=== PATIENT | male | born 1965 | race Caucasian/White ===

== ENCOUNTER 2017-03-30 19:07 | Inpatient (IN) | payer OTHER ==
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
[2017-03-30 21:27] LABS: Basophils % (A) 0 %; Eosinophils # (A) 0.1 k/uL (0-0.7); Eosinophils % (A) 1 %; HCT 48.2 % (39.0-53.0); HGB 15.6 gm/dL (13.0-17.5); Lymphocytes # (A) 1.4 k/uL (1.0-4.8); Lymphocytes % (A) 17 %; MCHC 32.3 g/dL (31.0-37.0); MCV 98.9 fL (80.0-100.0); Mean Platelet Volume 7.2; Monocytes # (A) 0.3 k/uL (0-1.0); Monocytes % (A) 4 %; Neutrophils # (A) 6.3 k/uL (1.3-7.7); Neutrophils % (A) 77 %; Platelet Count 220 k/uL (150-450); RBC 4.88 m/uL (4.30-5.90); RDW 11.8 % (11.5-15.5); WBC 8.2 k/uL (3.8-10.6)
[2017-03-30 21:41] LABS: ALT 24 U/L (21-72); AST 30 U/L (17-59); Albumin 4.8 g/dL (3.5-5.0); Alkaline Phosphatase 71 U/L (38-126); Anion Gap 14 mmol/L; Blood Urea Nitrogen 15 mg/dL (9-20); C Reactive Protein <5.0 mg/L (<10.0); Calcium 9.6 mg/dL (8.4-10.2); Carbon Dioxide 26 mmol/L (22-30); Chloride 102 mmol/L (98-107); Glucose 107 mg/dL (74-99); Potassium 4.9 mmol/L (3.5-5.1); Sodium 142 mmol/L (137-145); Total Bilirubin 0.5 mg/dL (0.2-1.3); Total Protein 8.5 g/dL (6.3-8.2)
[2017-03-30 21:44] LABS: D-Dimer 0.27 mg/L FEU (<0.60)
[2017-03-30 21:49] LABS: INR 1.1 (<1.2); Partial Thromboplastin Time 23.9 sec (22.0-30.0); Prothrombin Time 10.6 sec (9.0-12.0)
--- NOTE | 2017-03-30 21:54 | XR ---
EXAMINATION TYPE: XR chest 2V DATE OF EXAM: 03/30/2017 COMPARISON: 11/23/2014 HISTORY: Chest pain TECHNIQUE: Frontal and lateral views of the chest are obtained. FINDINGS: Heart and mediastinum are normal. Lungs are clear. Diaphragm is normal. Bony thorax is int act. There are chest leads. IMPRESSION: Normal chest. No change.
[2017-03-30 22:06] LABS: Creatine Kinase MB 1.1 ng/mL (0.0-2.4)
[2017-03-30 22:09] LABS: Troponin I 0.049 ng/mL (0.000-0.034)
[2017-03-30] MEDS ORDERED: HEPARIN SODIUM,PORCINE 5,000 UNIT/ML 1 ML VIAL IV ONE (22:53)
[2017-03-30] MEDS ORDERED: NITROGLYCERIN SL TABS 0.4 MG TAB SUBLINGUAL PRN (22:53)
[2017-03-30] MEDS: SODIUM CHLORIDE 0.9% 1,000 ML IV SCH (23:19)
[2017-03-30] MEDS: HEPARIN SOD,PORK IN 0.45% NACL 25,000 UNIT in 0.45% NACL 1 500ML.BAG IV SCH (23:19)
[2017-03-31] MEDS: NITROGLYCERIN OINT 1 INCH/GM PACKET TOPICAL SCH ×5 (00:23→23:01)
[2017-03-31 03:17] LABS: Troponin I 0.057 ng/mL (0.000-0.034)
[2017-03-31 06:26] LABS: Cholesterol 159 mg/dL (<200); HDL Cholesterol 45 mg/dL (40-60); LDL Cholesterol,Calculated 98 mg/dL (0-99); Triglycerides 82 mg/dL (<150)
[2017-03-31 08:20] VITALS: BMI 24.3
[2017-03-31] MEDS: ASPIRIN 325 MG TAB PO SCH (08:22)
[2017-03-31 10:32] LABS: Creatine Kinase MB 0.8 ng/mL (0.0-2.4)
[2017-03-31 10:34] LABS: Troponin I 0.036 ng/mL (0.000-0.034)
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
--- NOTE | 2017-03-31 12:54 | ECHOF ---
Referral Reason:assess lvf MEASUREMENTS -------- HEIGHT: 177.8 cm WEIGHT: 77.1 kg BP: IVSd: 1.3 cm (0.6 - 1.1) LVIDd: 3.3 cm (3.9 - 5.3) LVPWd: 1.3 cm (0.6 - 1.1) IVSs: 1.5 cm LVIDs: 2.5 cm LVPWs: 1.1 cm LAESV Index (A-L): 17.23 ml/m Ao Diam: 2.6 cm (2.0 - 3.7) AV Cusp: 1.6 cm (1.5 - 2.6) LA Diam: 3.1 cm (2.7 - 3.8) MV EXCURSION: 17.245 mm (> 18.000) MV EF SLOPE: 65 mm/s (70 - 150) EPSS: 0.2 cm MV E Alexander: 0.63 m/s MV DecT: 242 ms MV A Alexander: 0.78 m/s MV E/A Ratio: 0.81 RAP: 5.00 mmHg RVSP: 16.07 mmHg FINDINGS -------- Sinus rhythm. This was a technically good study. The left ventricular size is normal. There is mild concentric left ventricular hypertrophy. Overa ll left ventricular systolic function is normal with, an EF between 55 - 60 %. The right ventricle is normal in size. The left atrial size is normal. The right atrial size is normal. The aortic valve is trileaflet, and appears structurally normal. No aortic stenosis or regurgitation. The mitral valve is normal. Mild mitral regurgitation is present. Mild tricuspid regurgitation present. There is no evidence of pulmonary hypertension. The right v entricular systolic pressure, as measured by Doppler, is 16.07mmHg. There is no pulmonic regurgitation present. The aortic root size is normal. There is no pericardial effusion. CONCLUSIONS -------- 1. Sinus rhythm. 2. This was a technically good study. 3. The left ventricular size is normal. 4. There is mild concentric left ventricular hypertrophy. 5. Overall left ventricular systolic function is normal with, an EF between 55 - 60 %. 6. The left atrial size is normal. 7. The aortic valve is trileaflet, and appears structurally normal. No aortic stenosis or regurgitati on. 8. Mild mitral regurgitation is present. 9. Mild tricuspid regurgitation present. 10. There is no evidence of pulmonary hypertension. 11. There is no pulmonic regurgitation present. 12. The aortic root size is normal. 13. There is no pericardial effusion. [employer] TECHNICIAN: Celine Pablo RDCS
[2017-03-31] MEDS ORDERED: HEPARIN SODIUM,PORCINE 5,000 UNIT/ML 1 ML VIAL IV STA (13:10)
[2017-03-31] MEDS: ACETAMINOPHEN TAB 325 MG TAB PO PRN ×2 (14:44→19:57)
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
--- NOTE | 2017-03-31 16:35 | PN ---
PROGRESS NOTE CHIEF COMPLAINT: Chest pain. HISTORY OF PRESENT ILLNESS: This gentleman is stable and he has had no change in his vital signs. He has had no chest pain. PHYSICAL EXAMINATION: CHEST: Clear. Cardiac exam is normal. Abdomen is soft, nontender. IMPRESSION: Chest pain with elevated troponin. PLAN: Await recommendations of Cardiology. MMODL / IJN: [id number] /
[2017-03-31] MEDS: HEPARIN SOD,PORK IN 0.45% NACL 25,000 UNIT in 0.45% NACL 1 500ML.BAG IV SCH (22:06)
[2017-03-31] MEDS: SODIUM CHLORIDE 0.9% 1,000 ML IV SCH (22:07)
[2017-04-01] MEDS: NITROGLYCERIN OINT 1 INCH/GM PACKET TOPICAL SCH ×3 (05:58→15:06)
[2017-04-01 07:32] LABS: HCT 42.8 % (39.0-53.0); HGB 13.9 gm/dL (13.0-17.5); MCH 32.3 pg (25.0-35.0); MCHC 32.5 g/dL (31.0-37.0); MCV 99.6 fL (80.0-100.0); Platelet Count 191 k/uL (150-450); RDW 11.7 % (11.5-15.5); WBC 5.2 k/uL (3.8-10.6)
[2017-04-01 08:10] LABS: Anion Gap 10 mmol/L; Blood Urea Nitrogen 18 mg/dL (9-20); Calcium 9.1 mg/dL (8.4-10.2); Carbon Dioxide 26 mmol/L (22-30); Chloride 104 mmol/L (98-107); Glucose 81 mg/dL (74-99); Potassium 4.2 mmol/L (3.5-5.1); Sodium 140 mmol/L (137-145)
[2017-04-01] MEDS: ASPIRIN 325 MG TAB PO SCH ×2 (09:21→09:24)
[2017-04-01] MEDS ORDERED: DOBUTamine DRIP for NUC MED 250 MG in DEXTROSE/WATER 1 250ML.BAG IV ONE (12:50)
--- NOTE | 2017-04-01 14:00 | ECHOS ---
STRESS ECHOCARDIOGRAM INDICATIONS: Chest pain. BASELINE HEART RATE: 56 BASELINE BLOOD PRESSURE: 107/58 MAXIMUM HEART RATE: 152 MAXIMUM BLOOD PRESSURE: 136/51 85% MPHR: 145 100% MPHR: 171 MAXIMUM STAGE REACHED: 3 TOTAL EXERCISE TIME: 7:00 CLINICAL INFORMATION: Baseline rhythm is sinus mechanism, rate 56, normal axis and intervals, nonspecific ST- T wave changes. Baseline blood pressure 107/58 mmHg. Patient received an infusion of dobutamine per protocol, reaching a peak heart rate 152 beats per minute, which is equal to 89% maximum predicted heart rate. Peak blood pressure 136/51 mmHg. Electrocardiograph monitoring revealed no evidence of diagnostic ischemic ST deviation. FINDINGS: Baseline echocardiogram revealed normal function at peak exercise, there was normal wall motion augmentation with no hypokinesis or dyskinesis. CONCLUSION: 1. Normal electrocardiographic response to dobutamine infusion. 2. Normal stress echocardiogram with no evidence of stress-induced ischemia. MMODL / IJN: [id number] /
[2017-04-01 15:03] VITALS: BP 119/69; PULSE 79; RESP 16; TEMP 96.7
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
--- NOTE | 2017-04-01 16:30 | DS ---
DISCHARGE SUMMARY CHIEF COMPLAINT: Chest pain. HISTORY OF PRESENT ILLNESS AND PHYSICAL EXAM: Details of this man's history and physical can be found in the initial workup. LABORATORY STUDIES: While he was in a hospital he had laboratory studies details of which can be found in the laboratory section of chart. COURSE IN HOSPITAL: After admission he was placed in bedrest, started on intravenous fluids and had serial EKGs and enzymes. He was taken to the operating room where his cardiac cath was normal. It was felt he could go home afternoon and he will go home on no medications, his usual diet and activity and follow up in the office several days. FINAL DIAGNOSIS: Chest pain, noncardiac. OPERATIONS: Cardiac cath. CONSULTATIONS: Cardiology. He is improved. MMODL / IJN: [id number] /
== END 2017-04-01 15:42 | disposition home or self-care (01) | DRG 313 ==
LOC: EC 19:07 → 6SEL 22:53
PROVIDERS: ADMIT Family Medicine; ATTEND Family Medicine
DX: R07.9 Chest pain, unspecified (principal); F17.200 Nicotine dependence, unspecified, uncomplicated; F32.9 Major depressive disorder, single episode, unspecified; F43.10 Post-traumatic stress disorder, unspecified; G40.909 Epilepsy, unspecified, not intractable, without status epilepticus; F41.9 Anxiety disorder, unspecified; R00.1 Bradycardia, unspecified; R74.8 Abnormal levels of other serum enzymes; Z88.8 Allergy status to other drugs, medicaments and biological substances; Z91.030 Bee allergy status
CPT/HCPCS: 36415; 71046; 80048; 80053; 80061; 82550; 82553; 83735; 83880; 84484; 85025; 85027; 85379; 85610; 85652; 85730; 86140; 87502; 93005; 93017; 93306; 93350; 96365; 96366; 96376; 99285

== ENCOUNTER 2017-12-07 10:26 | Emergency (ER) | payer OTHER ==
[2017-12-07] MEDS ORDERED: IPRATROPIUM-ALBUTEROL 3 ML NEB INHALATION STA (11:05)
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
--- NOTE | 2017-12-07 11:22 | XR ---
EXAMINATION TYPE: XR chest 2V DATE OF EXAM: 12/07/2017 COMPARISON: 03/30/2017 HISTORY: Cough and congestion TECHNIQUE: Frontal and lateral views of the chest are obtained. FINDINGS: There is no focal air space opacity, pleural effusion, or pneumothorax seen. The cardiac silhouette size is within normal limits. The osseous structures are intact. IMPRESSION: No acute cardiopulmonary process.
[2017-12-07] MEDS ORDERED: methylPREDNISolone SOD SUCCI 125 MG/2 ML VIAL IM ONE (11:34)
[2017-12-07 12:19] VITALS: BP 141/84; PULSE 93; RESP 22; TEMP 98.3
== END 2017-12-07 12:19 | disposition home or self-care (01) ==
LOC: EC 10:26
DX: J20.9 Acute bronchitis, unspecified (principal); F17.200 Nicotine dependence, unspecified, uncomplicated; Z88.8 Allergy status to other drugs, medicaments and biological substances; Z91.030 Bee allergy status
CPT/HCPCS: 94640; 71046; 99283; 96372; J2930

== ENCOUNTER 2018-03-22 10:43 | Emergency (ER) | payer OTHER ==
[2018-03-22 11:00] VITALS: BP 134/89; PULSE 102; RESP 18; TEMP 97.8
[2018-03-22] MEDS ORDERED: AMOXIC-POT CLAV 875MG STARTER 2 EACH TABLET PO STA (12:05)
[2018-03-22] MEDS ORDERED: AMOXIC-POT CLAV 875-125MG 1 EACH TAB PO STA (12:05)
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
== END 2018-03-22 13:37 | disposition home or self-care (01) ==
LOC: EC 10:43
DX: S62.632A Displaced fracture of distal phalanx of right middle finger, initial encounter for closed fracture (principal); S60.511A Abrasion of right hand, initial encounter; F17.200 Nicotine dependence, unspecified, uncomplicated; Z88.8 Allergy status to other drugs, medicaments and biological substances; Z91.030 Bee allergy status; Y04.1XXA Assault by human bite, initial encounter; Y04.0XXA Assault by unarmed brawl or fight, initial encounter; Y92.89 Other specified places as the place of occurrence of the external cause
CPT/HCPCS: 99284

== ENCOUNTER 2018-04-15 04:04 | Emergency (ER) | payer OTHER ==
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
[2018-04-15 08:23] VITALS: BP 101/74; PULSE 91; RESP 18; TEMP 97.8
== END 2018-04-15 08:58 | disposition home or self-care (01) ==
LOC: EC 04:04
DX: F10.129 Alcohol abuse with intoxication, unspecified (principal); F17.200 Nicotine dependence, unspecified, uncomplicated; Z88.8 Allergy status to other drugs, medicaments and biological substances; Z91.030 Bee allergy status
CPT/HCPCS: 82075; 99284

== ENCOUNTER 2018-08-07 00:29 | Emergency (ER) | payer OTHER ==
[2018-08-07] MEDS ORDERED: SODIUM CHLORIDE 0.9% 1,000 ML IV STA ×2 (00:42→02:15)
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
[2018-08-07] MEDS ORDERED: MORPHINE SULFATE 4 MG/ML SYRINGE IVP STA ×2 (00:47→02:14)
[2018-08-07 00:51] VITALS: RESP 16
[2018-08-07 00:57] LABS: Basophils % (A) 0 %; Eosinophils # (A) 0.2 k/uL (0-0.7); Eosinophils % (A) 3 %; HCT 40.5 % (39.0-53.0); HGB 13.1 gm/dL (13.0-17.5); Lymphocytes % (A) 24 %; MCH 32.1 pg (25.0-35.0); MCHC 32.4 g/dL (31.0-37.0); Mean Platelet Volume 7.3; Monocytes # (A) 0.4 k/uL (0-1.0); Monocytes % (A) 5 %; Neutrophils # (A) 5.4 k/uL (1.3-7.7); Neutrophils % (A) 66 %; Platelet Count 199 k/uL (150-450); RBC 4.09 m/uL (4.30-5.90); RDW 13.2 % (11.5-15.5); WBC 8.2 k/uL (3.8-10.6)
[2018-08-07 01:05] LABS: African American GFR (CKD) >90 (>60 ml/min/1.73 sqM); Anion Gap 8 mmol/L; Blood Urea Nitrogen 17 mg/dL (9-20); Calcium 8.4 mg/dL (8.4-10.2); Carbon Dioxide 23 mmol/L (22-30); Chloride 109 mmol/L (98-107); Glucose 80 mg/dL (74-99); Potassium 4.3 mmol/L (3.5-5.1); Sodium 140 mmol/L (137-145)
[2018-08-07 01:47] VITALS: BP 125/73
--- NOTE | 2018-08-07 02:03 | CT ---
EXAM: CT Abdomen and Pelvis Without Intravenous Contrast CLINICAL HISTORY: ITS.REASON CT Reason: Pain. Left flank pain. TECHNIQUE: Axial computed tomography images of the abdomen and pelvis without intravenous contrast. CTDI is 7.4 mGy and DLP is 399.3 mGy-cm. This CT exam was performed using one or more of the following dose reduction techniques: automated exposure control, adjustment of the mA and/or kV according to patient size, and/or use of iterative reconstruction technique. COMPARISON: None available FINDINGS: Lung bases: Mild bibasilar dependent subsegmental atelectasis. ABDOMEN: Liver: Submillimeter low density lesion medial segment left lobe of liver is nonspecific-possible small hepatic cyst but too small for definitive CT characterization. Gallbladder and bile ducts: Gallbladder is unremarkable. No calcified stones. No ductal dilation. Pancreas: Pancreas is unremarkable. Spleen: Spleen is unremarkable. Adrenals: No adrenal masses. Kidneys and ureters: Small approximately 2 millimeter nonobstructing right lower pole renal calculus. Small approximately 4 x 5 mm distal left ureteral calculus with mild left hydronephrosis and hydroureter. Mild perinephric and periureteral stranding compatible with obstructive uropathy. Stomach and bowel: Stomach is nondistended. No evidence of bowel obstruction or pneumoperitoneum. PELVIS: Appendix: Appendix not identified. Post surgical changes about cecal tip suggesting previous appendectomy. Clinical correlation is recommended. Bladder: Mild apparent urinary bladder wall thickening may be related to incomplete distention or possible cystitis. No bladder calculi. Reproductive: Unremarkable as visualized. ABDOMEN and PELVIS: Intraperitoneal space: See above. Bones/joints: Multilevel lumbar spine degenerative changes. Moderate osteoarthritic degenerative changes about both hips. Soft tissues: Minimal fat-containing umbilical hernia. Vasculature: No abdominal aortic aneurysm. Lymph nodes: No evidence of lymphadenopathy. IMPRESSION: Small approximately 4 x 5 mm distal left ureteral calculus with mild left hydronephrosis and hydroureter. Small nonobstructing right renal calculus. Mild urinary bladder wall thickening may be related to incomplete distention or possible cystitis. No bladder calculi. Small 7 mm left hepatic low-density is nonspecific-possible small hepatic cyst.
[2018-08-07] MEDS ORDERED: KETOROLAC 30 MG/ML 1 ML VIAL IVP STA (02:47)
[2018-08-07] MEDS ORDERED: ONDANSETRON 4 MG/2 ML VIAL IM STA (02:53)
[2018-08-07] MEDS ORDERED: ONDANSETRON 4 MG/2 ML VIAL IVP STA (02:56)
[2018-08-07 03:45] LABS: Appearance,Urine Clear (Clear); Bilirubin,Urine Negative (Negative); Blood,Urine Moderate (Negative); Color,Urine Yellow; Glucose,Urine (UA) Negative (Negative); Ketones,Urine 1+ (Negative); Leukocyte Esterase,Urine Negative (Negative); Mucus,Urine Few /hpf; Nitrite,Urine Negative (Negative); Protein,Urine Trace (Negative); RBC,Urine >182 /hpf (0-5); Specific Gravity,Urine 1.019 (1.001-1.035); Sperm,Urine Rare /hpf; WBC,Urine 1 /hpf (0-5)
--- NOTE | 2018-08-07 04:09 | ED ---
Medical Decision Making - Lab Data Result diagrams: 08/07/18 00:43 08/07/18 00:43 Lab Results 08/07/18 08/07/18 08/07/18 Range/Units 00:43 00:43 03:34 WBC 8.2 (3.8-10.6) k/uL RBC 4.09 L (4.30-5.90) m/uL Hgb 13.1 (13.0-17.5) gm/dL Hct 40.5 (39.0-53.0) % MCV 99.0 (80.0-100.0) fL MCH 32.1 (25.0-35.0) pg MCHC 32.4 (31.0-37.0) g/dL RDW 13.2 (11.5-15.5) % Plt Count 199 (150-450) k/uL Neutrophils % 66 % Lymphocytes % 24 % Monocytes % 5 % Eosinophils % 3 % Basophils % 0 % Neutrophils # 5.4 (1.3-7.7) k/uL Lymphocytes # 2.0 (1.0-4.8) k/uL Monocytes # 0.4 (0-1.0) k/uL Eosinophils # 0.2 (0-0.7) k/uL Basophils # 0.0 (0-0.2) k/uL Sodium 140 (137-145) mmol/L Potassium 4.3 (3.5-5.1) mmol/L Chloride 109 H (98-107) mmol/L Carbon Dioxide 23 (22-30) mmol/L Anion Gap 8 mmol/L BUN 17 (9-20) mg/dL Creatinine 0.90 (0.66-1.25) mg/dL Est GFR (CKD-EPI)AfAm >90 (>60 ml/min/1.73 sqM) Est GFR (CKD-EPI)NonAf >90 (>60 ml/min/1.73 sqM) Glucose 80 (74-99) mg/dL Calcium 8.4 (8.4-10.2) mg/dL Urine Color Yellow Urine Appearance Clear (Clear) Urine pH 6.0 (5.0-8.0) Ur Specific [place] 1.019 (1.001-1.035) Urine Protein Trace H (Negative) Urine Glucose (UA) Negative (Negative) Urine Ketones 1+ H (Negative) Urine Blood Moderate H (Negative) Urine Nitrite Negative (Negative) Urine Bilirubin Negative (Negative) Urine Urobilinogen 2.0 (<2.0) mg/dL Ur Leukocyte Esterase Negative (Negative) Urine RBC >182 H (0-5) /hpf Urine WBC 1 (0-5) /hpf Urine Mucus Few H (None) /hpf Urine Sperm Rare (None) /hpf Disposition Clinical Impression: Kidney stone Disposition: HOME SELF-CARE Condition: Good Instructions (If sedation given, give patient instructions): Kidney Stones (ED) Prescriptions: Ketorolac [Toradol] 20 mg PO Q6HR PRN #20 tab PRN Reason: Pain Is patient prescribed a controlled substance at d/c from ED?: No Referrals: Trino Haas MD [STAFF PHYSICIAN] - 1-2 days Time of Disposition: 04:09
[2018-08-07 04:14] VITALS: PULSE 70
== END 2018-08-07 04:13 | disposition home or self-care (01) ==
LOC: EC 00:29
DX: N13.2 Hydronephrosis with renal and ureteral calculous obstruction (principal); F17.200 Nicotine dependence, unspecified, uncomplicated; Z88.8 Allergy status to other drugs, medicaments and biological substances; Z91.030 Bee allergy status; Z53.8 Procedure and treatment not carried out for other reasons
CPT/HCPCS: 36415; 80048; 85025; 81001; 87086; 74176; 99285; 96374; 96375 ×2; 96376; 96361 ×3; J2270; J2405; J1885

== ENCOUNTER 2018-11-03 08:56 | Observation (INO) | payer OTHER ==
[2018-11-03] MEDS ORDERED: ASPIRIN 81 MG PO STA (08:59)
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
[2018-11-03] MEDS ORDERED: KETOROLAC 30 MG/ML 1 ML VIAL IVP STA (09:07)
[2018-11-03] MEDS ORDERED: ONDANSETRON 4 MG/2 ML VIAL IVP STA (09:07)
[2018-11-03 09:26] LABS: Basophils # (A) 0.1 k/uL (0-0.2); Basophils % (A) 0 %; Eosinophils # (A) 0.1 k/uL (0-0.7); Eosinophils % (A) 1 %; HCT 48.1 % (39.0-53.0); HGB 15.2 gm/dL (13.0-17.5); Lymphocytes # (A) 1.9 k/uL (1.0-4.8); Lymphocytes % (A) 16 %; MCH 31.3 pg (25.0-35.0); MCHC 31.5 g/dL (31.0-37.0); MCV 99.4 fL (80.0-100.0); Mean Platelet Volume 7.2; Monocytes # (A) 0.3 k/uL (0-1.0); Monocytes % (A) 3 %; Neutrophils # (A) 9.1 k/uL (1.3-7.7); Neutrophils % (A) 78 %; Platelet Count 230 k/uL (150-450); RBC 4.84 m/uL (4.30-5.90); RDW 13.5 % (11.5-15.5); WBC 11.5 k/uL (3.8-10.6)
--- NOTE | 2018-11-03 09:37 | XR ---
EXAMINATION TYPE: XR chest 2V DATE OF EXAM: 11/03/2018 COMPARISON: 12/07/2017 HISTORY: Shortness of breath TECHNIQUE: Frontal and lateral views of the chest are obtained. FINDINGS: Scattered senescent parenchymal changes noted. Hyperinflation compatible with COPD. No evidence for infiltrate. No evidence for atelectasis. Heart size is stable. Mediastinal structures are stable and grossly unremarkable. No evidence for hilar prominence. Degenerative changes dorsal spine. IMPRESSION: 1. No evidence for acute pulmonary disease.
[2018-11-03 09:41] LABS: African American GFR (CKD) >90 (>60 ml/min/1.73 sqM); Anion Gap 17 mmol/L; Blood Urea Nitrogen 17 mg/dL (9-20); Calcium 9.2 mg/dL (8.4-10.2); Carbon Dioxide 20 mmol/L (22-30); Chloride 107 mmol/L (98-107); Creatine Kinase 85 U/L (55-170); Glucose 58 mg/dL (74-99); Sodium 144 mmol/L (137-145); Total Bilirubin 0.8 mg/dL (0.2-1.3)
[2018-11-03 09:44] LABS: ALT 17 U/L (21-72); AST 37 U/L (17-59); Albumin 4.9 g/dL (3.5-5.0); Alkaline Phosphatase 99 U/L (38-126); Potassium 5.1 mmol/L (3.5-5.1); Total Protein 8.8 g/dL (6.3-8.2)
[2018-11-03 09:50] LABS: D-Dimer 0.5 mg/L FEU (<0.60); Partial Thromboplastin Time 24.8 sec (22.0-30.0); Prothrombin Time 10.6 sec (9.0-12.0)
[2018-11-03] MEDS ORDERED: NITROGLYCERIN SL TABS 0.4 MG TAB SUBLINGUAL PRN (14:38)
[2018-11-03] MEDS ORDERED: SODIUM CHLORIDE 0.9% 1,000 ML IV SCH (14:45)
[2018-11-03 15:20] VITALS: RESP 18
[2018-11-04 03:30] LABS: Cholesterol 221 mg/dL (<200); HDL Cholesterol 51 mg/dL (40-60); LDL Cholesterol,Calculated 153 mg/dL (0-99); Triglycerides 87 mg/dL (<150)
--- NOTE | 2018-11-04 08:21 | CONS ---
CONSULTATION Mr. Abraham is a 53-year-old male with known history of chronic tobacco use, who presented to the emergency room with symptoms of chest discomfort. He was dropping his daughter at school when he had an episode of chest discomfort associated with some dyspnea. The discomfort was severe and he came into the emergency room. At the time of my evaluation, he is pain free. The patient is quite active physically, has no exertional chest discomfort. No dyspnea on exertion. No dizziness, palpitation, or syncope. He was admitted to the hospital in November 2014 with similar symptoms and subsequently underwent an echocardiogram that revealed no evidence of inducible ischemia. He was readmitted to the hospital in March 2017 and underwent a dobutamine stress echocardiogram at that time that showed no evidence of stress induced ischemia. The patient had not any symptoms since that episode. He denies any PND, orthopnea, or peripheral edema. No arrhythmia. He has not had any recent other symptoms. His coronary risk factors are remarkable for the history of smoking. He is nondiabetic. No history of documented hypertension or hyperlipidemia. MEDICATIONS AT HOME: None. REVIEW OF SYSTEMS: RESPIRATORY SYSTEM: He has no recent cough or wheezing. No history of documented obstructive lung disease. GI SYSTEM: No recent GI bleed. No peptic ulcer disease. SYSTEM: No dysuria or hematuria. NERVOUS SYSTEM: No stroke or seizure. PHYSICAL EXAMINATION: This is a 53-year-old male, alert, oriented, in no apparent distress. Blood pressure running in the 130s to 140s with the heart rate in the 60s. HEAD: Normocephalic. EYES: Sclerae anicteric. NECK: Good carotid upstroke. No bruit,. No jugular venous distention. LUNGS: Clear to auscultation. HEART: Regular rate and rhythm. S1, S2. No S3. No S4. No murmur or rub. ABDOMEN: Soft, nontender. Positive bowel sounds. No organomegaly. EXTREMITIES: No edema. Intact distal pulses. LAB DATA: EKG sinus mechanism, rate of 99, borderline right axis deviation with nonspecific ST-T wave changes with early repolarization changes. Chest x-ray shows no acute changes. Lab data revealed troponin less than 0.012 for 3 samples. Cholesterol 221, LDL of 153. BUN and creatinine 17 and 0.98. Hemoglobin of 15.2. IMPRESSION: 1. Chest discomfort of unclear etiology, has some atypical features for ischemic heart disease. 2. History of smoking. 3. Hyperlipidemia. RECOMMENDATION: I have encouraged him to stop smoking. I will proceed to obtain a stress echocardiogram to rule out any evidence of inducible ischemia. If there is no evidence of abnormality then no further cardiac workup will be needed. I will recommend to initiate treatment for his hyperlipidemia. Depending on the results of his testing, further recommendation will be made. Thank you for this consult. We will follow with you. CELESTINO / JILLN: [id number] /
[2018-11-04] MEDS ORDERED: ASPIRIN 81 MG PO SCH (09:00)
[2018-11-04] MEDS ORDERED: ATORVASTATIN 20 MG TAB PO SCH (09:00)
[2018-11-04] MEDS ORDERED: ASPIRIN 325 MG TAB PO SCH (09:00)
--- NOTE | 2018-11-04 10:25 | ECHOF ---
Referral Reason:cp MEASUREMENTS -------- HEIGHT: 180.3 cm WEIGHT: 74.8 kg BP: RVIDd: 2.5 cm (< 3.3) IVSd: 0.8 cm (0.6 - 1.1) LVIDd: 3.9 cm (3.9 - 5.3) LVPWd: 0.9 cm (0.6 - 1.1) IVSs: 1.3 cm LVIDs: 1.7 cm LVPWs: 1.5 cm LAESV Index (A-L): 17.85 ml/m Ao Diam: 2.7 cm (2.0 - 3.7) AV Cusp: 1.9 cm (1.5 - 2.6) LA Diam: 2.1 cm (2.7 - 3.8) MV EXCURSION: 11.388 mm (> 18.000) MV EF SLOPE: 55 mm/s (70 - 150) EPSS: 0.9 cm MV E Alexander: 0.74 m/s MV DecT: 325 ms MV A Alexander: 0.76 m/s MV E/A Ratio: 0.97 RAP: 5.00 mmHg RVSP: 12.71 mmHg TAPSE: 24.60 mm FINDINGS -------- Sinus rhythm. This was a technically good study. The left ventricular size is normal. Left ventricular wall thickness is normal. Overall left vent ricular systolic function is normal with, an EF between 55 - 60 %. The diastolic filling pattern is normal for the age of the patient 6.39. The right ventricle is normal in size. The right ventricular systolic function is normal. Normal LA size by volume 22+/-6 ml/m2. The right atrial size is normal. Interatrial and interventricular septum intact. The aortic valve is trileaflet, and appears structurally normal. No aortic stenosis or regurgitation. The mitral valve is normal. There is trace mitral regurgitation. The tricuspid valve appears structurally normal. Trace tricuspid regurgitation present. Right jake tricular systolic pressure is normal at < 35 mmHg. There is no pulmonic regurgitation present. The aortic root size is normal. Normal inferior vena cava with normal inspiratory collapse consistent with estimated right atrial pre ssure of 5 mmHg. All pulmonary veins appear normal. The flow patterns, measured by Doppler, appear normal. There is no pericardial effusion. CONCLUSIONS -------- 1. Sinus rhythm. 2. This was a technically good study. 3. The left ventricular size is normal. 4. Left ventricular wall thickness is normal. 5. Overall left ventricular systolic function is normal with, an EF between 55 - 60 %. 6. The diastolic filling pattern is normal for the age of the patient 6.39 7. The right ventricular systolic function is normal. 8. Normal LA size by volume 22+/-6 ml/m2. 9. The aortic valve is trileaflet, and appears structurally normal. No aortic stenosis or regurgitati on. 10. There is trace mitral regurgitation. 11. Trace tricuspid regurgitation present. 12. Right ventricular systolic pressure is normal at < 35 mmHg. 13. There is no pulmonic regurgitation present. 14. The aortic root size is normal. 15. Normal inferior vena cava with normal inspiratory collapse consistent with estimated right atrial pressure of 5 mmHg. 16. All pulmonary veins appear normal. 17. The flow patterns, measured by Doppler, appear normal. 18. There is no pericardial effusion. [employer] OPERATOR: Millicent Augustin RDCS
[2018-11-04 11:42] VITALS: BP 122/92; PULSE 80; TEMP 98.3
--- NOTE | 2018-11-04 12:39 | ECHOS ---
STRESS ECHOCARDIOGRAM DATE OF SERVICE: 11/04/2018 INDICATIONS: Chest pain. MEDICATIONS: BASELINE HEART RATE: 70 BASELINE BLOOD PRESSURE: 125/60 MAXIMUM HEART RATE: 168 MAXIMUM BLOOD PRESSURE: 203/65 85% MPHR: 144 100% MPHR: 169 METS: 11.1 MAXIMUM STAGE REACHED: IV TOTAL EXERCISE TIME: 9 minutes 30 seconds CLINICAL INFORMATION: Baseline rhythm is sinus mechanism, rate of 70, normal axis and intervals, normal electrocardiogram. Baseline blood pressure 125/60 mmHg. Patient exercised on Willian protocol for 9 minutes 30 seconds reaching a peak rate 168 beats per minute which is equal to 99% maximum predicted heart rate. Peak blood pressure 203/65 mmHg. Test was terminated secondary to fatigue. There was no chest pain. Electrocardiograph monitoring revealed no evidence of diagnostic ischemic ST deviation. Baseline echocardiogram revealed normal wall thickening and motion. At peak exercise, there was normal wall motion augmentation with no hypokinesis or dyskinesis. CONCLUSION: 1. Good exercise tolerance with normal electrocardiographic response to exercise. 2. Normal stress echocardiogram with no evidence of stress induced ischemia. MMODL / IJN: [id number] /
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
--- NOTE | 2018-11-04 22:48 | DS ---
DISCHARGE SUMMARY CHIEF COMPLAINT: Chest pain. HISTORY OF PRESENT ILLNESS AND PHYSICAL EXAM: Details of this man's history and physical can be found in the initial workup. LABORATORY STUDIES: While he was in the hospital, he had laboratory studies, details of which can be found in the laboratory section of his chart. COURSE IN THE HOSPITAL: After admission, he was placed on bedrest, started his fluids and he had serial EKGs and enzymes. They were normal. He was taken for a stress study which was normal. It was felt that he could be discharged. He will go home on his usual diet and activity and no medication. He will follow up in the office in several days. FINAL DIAGNOSES: 1. Atypical chest pain. 2. Hypertension. OPERATIONS: None. CONSULTATION: Cardiology. He is improved. CELESTINO / BRIE: [id number] /
== END 2018-11-04 13:50 | disposition home or self-care (01) ==
LOC: EC 08:56 → 1SOBS 14:39
PROVIDERS: ADMIT Family Medicine; ATTEND Family Medicine
DX: R07.89 Other chest pain (principal); I10 Essential (primary) hypertension; E78.5 Hyperlipidemia, unspecified; R11.2 Nausea with vomiting, unspecified; R61 Generalized hyperhidrosis; G40.909 Epilepsy, unspecified, not intractable, without status epilepticus; F43.10 Post-traumatic stress disorder, unspecified; F41.9 Anxiety disorder, unspecified; F32.9 Major depressive disorder, single episode, unspecified; F17.210 Nicotine dependence, cigarettes, uncomplicated; Z88.8 Allergy status to other drugs, medicaments and biological substances; Z91.030 Bee allergy status; Z87.820 Personal history of traumatic brain injury; Z90.49 Acquired absence of other specified parts of digestive tract
CPT/HCPCS: 96374; 96375; 99285; 36415; 94760; 93005; 93306; 93351; 85379; 83880; 80061; 80053; 82550; 83690; 83735; 84484; 85025; 85610; 85730; 71046; G0378 ×2; J2405; J1885

== ENCOUNTER 2019-07-17 01:26 | Emergency (ER) | payer OTHER ==
[2019-07-17] MEDS ORDERED: ALBUTEROL NEBULIZED 2.5 MG/3 ML INHALATION STA (01:49)
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
[2019-07-17 02:01] LABS: Basophils % (A) 0 %; Eosinophils # (A) 0.1 k/uL (0-0.7); Eosinophils % (A) 1 %; HGB 14.3 gm/dL (13.0-17.5); Lymphocytes # (A) 2.6 k/uL (1.0-4.8); Lymphocytes % (A) 30 %; Mean Platelet Volume 7.7; Monocytes # (A) 0.4 k/uL (0-1.0); Monocytes % (A) 4 %; Neutrophils # (A) 5.3 k/uL (1.3-7.7); Neutrophils % (A) 62 %; Platelet Count 234 k/uL (150-450); RBC 4.34 m/uL (4.30-5.90); RDW 13.9 % (11.5-15.5); WBC 8.6 k/uL (3.8-10.6)
--- NOTE | 2019-07-17 02:02 | XR ---
EXAMINATION TYPE: XR chest 2V DATE OF EXAM: 07/17/2019 COMPARISON: 11/03/2018 HISTORY: Chest pain TECHNIQUE: 2 views FINDINGS: Heart and mediastinum are normal. Lungs are clear. Diaphragm is normal. Bony thorax appears normal. IMPRESSION: Normal chest. No change.
[2019-07-17 02:17] LABS: ALT 23 U/L (4-49); AST 43 U/L (17-59); African American GFR (CKD) >90 (>60 ml/min/1.73 sqM); Albumin 4.8 g/dL (3.5-5.0); Alkaline Phosphatase 86 U/L (38-126); Anion Gap 13 mmol/L; Blood Urea Nitrogen 11 mg/dL (9-20); Carbon Dioxide 23 mmol/L (22-30); Chloride 108 mmol/L (98-107); Glucose 79 mg/dL (74-99); Non-African American GFR(CKD) >90 (>60 ml/min/1.73 sqM); Potassium 4.6 mmol/L (3.5-5.1); Sodium 144 mmol/L (137-145); Total Bilirubin 0.4 mg/dL (0.2-1.3); Total Protein 8.1 g/dL (6.3-8.2)
[2019-07-17 02:20] LABS: D-Dimer 0.33 mg/L FEU (<0.60); Partial Thromboplastin Time 25.9 sec (22.0-30.0); Prothrombin Time 10.3 sec (9.0-12.0)
[2019-07-17] MEDS ORDERED: SODIUM CHLORIDE 0.9% 1,000 ML IV ONE (02:47)
[2019-07-17 04:30] VITALS: BP 100/55; PULSE 78; RESP 18; TEMP 98
== END 2019-07-17 05:18 | disposition home or self-care (01) ==
LOC: EC 01:26
DX: R06.00 Dyspnea, unspecified (principal); R05 Cough; F17.200 Nicotine dependence, unspecified, uncomplicated; Z88.8 Allergy status to other drugs, medicaments and biological substances; Z91.030 Bee allergy status; Z20.828 Contact with and (suspected) exposure to other viral communicable diseases; Z87.01 Personal history of pneumonia (recurrent)
CPT/HCPCS: 99285 ×2; 96360 ×2; 36415; 94640; 93005; 85379; 83880; 80053; 83605; 84484; 85025; 85610; 85730; 71046; U0003

== ENCOUNTER 2019-12-14 22:59 | Emergency (ER) | payer OTHER ==
--- NOTE | 2019-12-14 23:13 | ED ---
Medical Clearance HPI - General Stated complaint: ETOH Time Seen by Provider: 12/14/19 23:01 Source: RN notes reviewed, old records reviewed Mode of arrival: EMS Limitations: language barrier - History of Present Illness Initial comments: this is a 54-year-old male DF for skilled nursing clearance patient refusing to cooperate here in the emergency department Complaint: medical clearance requested -: unknown Reason for Medical Clearance: intoxication Place: home Alleged Intoxication: Yes Compliant with Home Medications: No Traumatic Symptoms: denies traumatic injury Associated Symptoms: other (none) Treatments Prior to Arrival: none Home medications: Home Medications Medication Instructions Recorded Confirmed No Known Home Medications 11/03/18 11/03/18 Allergies/Adverse reactions: Allergies Allergy/AdvReac Type Severity Reaction Status Date / Time divalproex sodium Allergy Unknown Anaphylaxis Verified 07/17/19 01:33 [From Depakote] venom-honey bee Allergy Anaphylaxis Verified 07/17/19 01:33 [bee venom (honey bee)] Review of Systems ROS Statement: Those systems with pertinent positive or pertinent negative responses have been documented in the HPI. ROS Other: All systems not noted in ROS Statement are negative. 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 [facility]" ANXIETY, DEPRESSION, PTSD, NIGHTMARES History of Any Multi-Drug Resistant Organisms: None Reported Past Surgical History: No Surgical Hx Reported Additional Past Surgical History / Comment(s): plastic surgery, ear, face head Past Anesthesia/Blood Transfusion Reactions: No Reported Reaction Past Psychological History: Anxiety, Depression, PTSD Past Alcohol Use History: Abuse, Daily, Heavy Past Drug Use History: None Reported - Past Family History Mother Additional Family Medical History / Comment(s): scleroderma, heart disease Father Family Medical History: Myocardial Infarction ([place]) General Exam General appearance: alert, in no apparent distress, anxious Head exam: Present: atraumatic, normocephalic, normal inspection Eye exam: Present: normal appearance, PERRL, EOMI. Absent: scleral icterus, conjunctival injection, periorbital swelling ENT exam: Present: normal exam, mucous membranes moist Neck exam: Present: normal inspection. Absent: tenderness, meningismus, lymphadenopathy Respiratory exam: Present: normal lung sounds bilaterally. Absent: respiratory distress, wheezes, rales, rhonchi, stridor Cardiovascular Exam: Present: regular rate, normal rhythm, normal heart sounds. Absent: systolic murmur, diastolic murmur, rubs, gallop, clicks GI/Abdominal exam: Present: soft, normal bowel sounds. Absent: distended, tenderness, guarding, rebound, rigid Extremities exam: Present: normal inspection, full ROM, normal capillary refill. Absent: tenderness, pedal edema, joint swelling, calf tenderness Back exam: Present: normal inspection Neurological exam: Present: alert, oriented X3, CN II-XII intact Psychiatric exam: Present: normal affect, normal mood Skin exam: Present: warm, dry, intact, normal color. Absent: rash Course - Reevaluation(s) Reevaluation #1: edical records reviewed patient continues to refuse cooperation was awake and alert speaking appropriately and answering questions appropriately Medical Decision Making - Medical Decision Making 54 male to the ERF for evaluation patient haspresents with PD for evaluation. Patient is clear for skilled nursing Disposition Clinical Impression: Medical clearance for incarceration, Alcohol intoxication Disposition: HOME SELF-CARE Condition: Fair Instructions (If sedation given, give patient instructions): Alcohol Intoxication (ED) Is patient prescribed a controlled substance at d/c from ED?: No Referrals: Horacio Martin MD [Primary Care Provider] - 1-2 days
== END 2019-12-14 23:18 | disposition home or self-care (01) ==
LOC: EC 22:59
DX: F10.129 Alcohol abuse with intoxication, unspecified (principal); Z02.89 Encounter for other administrative examinations; Z88.8 Allergy status to other drugs, medicaments and biological substances; Z91.030 Bee allergy status; Y90.9 Presence of alcohol in blood, level not specified
CPT/HCPCS: 99284

== ENCOUNTER 2020-08-12 07:28 | Emergency (ER) | payer OTHER ==
[2020-08-12 07:34] VITALS: BP 156/91; PULSE 88; RESP 18; TEMP 98.1
--- NOTE | 2020-08-12 09:13 | ED ---
Upper Extremity HPI - General Chief Complaint: Extremity Injury, Upper Stated Complaint: Ring Stuck on Finger Time Seen by Provider: 08/12/20 07:45 Source: patient Mode of arrival: ambulatory Limitations: no limitations - History of Present Illness Initial Comments: Patient is a 55-year-old male presenting to emergency Department with complaints of a ring stuck on his right fourth digit for the past 4 days. He has tried many attempts at home including icing, straining, nothing has worked we came in for assistance. He has no further complaints at this time. - Related Data Home Medications Medication Instructions Recorded Confirmed No Known Home Medications 11/03/18 11/03/18 Allergies Allergy/AdvReac Type Severity Reaction Status Date / Time divalproex sodium Allergy Unknown Anaphylaxis Verified 08/12/20 07:30 [From Depakote] venom-honey bee Allergy Anaphylaxis Verified 08/12/20 07:30 [bee venom (honey bee)] Review of Systems ROS Statement: Those systems with pertinent positive or pertinent negative responses have been documented in the HPI. ROS Other: All systems not noted in ROS Statement are negative. 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" ANXIETY, DEPRESSION, PTSD, NIGHTMARES History of Any Multi-Drug Resistant Organisms: None Reported Past Surgical History: No Surgical Hx Reported Additional Past Surgical History / Comment(s): plastic surgery, ear, face head Past Anesthesia/Blood Transfusion Reactions: No Reported Reaction Past Psychological History: Anxiety, Depression, PTSD Smoking Status: Current every day smoker Past Alcohol Use History: Daily Past Drug Use History: Marijuana - Past Family History Mother Additional Family Medical History / Comment(s): scleroderma, heart disease Father Family Medical History: Myocardial Infarction ([place]) General Exam - General Exam Comments Initial Comments: GENERAL: Patient is well-developed and well-nourished. Patient is nontoxic and in no acute distress. HEAD: Atraumatic, normocephalic. EYES: Pupils equal round and reactive to light, extraocular movements intact, sclera anicteric, conjunctiva are normal. Eyelids were unremarkable. LUNGS: Unlabored respirations. Breath sounds clear to auscultation bilaterally and equal. No wheezes rales or rhonchi. HEART: Regular rate and rhythm without murmurs, rubs or gallops. MUSCULOSKELETAL: Normal extremities with adequate strength and normal range of motion, no pitting or edema. No clubbing or cyanosis. NEUROLOGICAL: Patient is alert and oriented x 3. Normal speech, normal gait. SKIN: Warm, Dry, normal turgor, no rashes. Recent has a thick band ring on the right fifth digit, fifth digit is swollen and erythematous, he does still have sensitivity, normal cap refill. Limitations: no limitations Course Vital Signs 08/12/20 07:30 Temperature 98.1 F Pulse Rate 88 Respiratory 18 Rate Blood Pressure 156/91 O2 Sat by Pulse 96 Oximetry Procedures - Procedures Initial comment: A ring cutter was used to remove ring stuck on the right fifth digit. Medical Decision Making - Medical Decision Making Patient is a 55-year-old male presenting with a ring stuck on his right fifth digit for the last 4 days. We were able to remove the ring using a ring cutter. The right finger was reassessed, Refill is normal, sensation is normal. He is stable for discharge. Disposition Clinical Impression: Foreign body of right little finger Disposition: HOME SELF-CARE Condition: Stable Instructions (If sedation given, give patient instructions): Contusion in Adults (ED) Additional Instructions: Please return to the Emergency Department if symptoms worsen or any other concerns. Recommend ice to the area, gentle range of motion. Follow up with primary care physician. Is patient prescribed a controlled substance at d/c from ED?: No Referrals: Horacio Martin MD [Primary Care Provider] - 1-2 days Time of Disposition: 09:13
== END 2020-08-12 09:18 | disposition home or self-care (01) ==
LOC: EC 07:28
DX: S60.456A Superficial foreign body of right little finger, initial encounter (principal); G40.909 Epilepsy, unspecified, not intractable, without status epilepticus; F17.200 Nicotine dependence, unspecified, uncomplicated; F12.90 Cannabis use, unspecified, uncomplicated; Z82.49 Family history of ischemic heart disease and other diseases of the circulatory system; W22.8XXA Striking against or struck by other objects, initial encounter
CPT/HCPCS: 99283

== ENCOUNTER 2020-11-28 01:53 | Inpatient (IN) | payer MEDICAID, OTHER ==
--- NOTE | 2020-11-28 02:44 | ED ---
Psych HPI <Justin Mott - Last Filed: 11/28/20 09:21> - General Source: patient Mode of arrival: ambulatory - History of Present Illness MD Complaint: suicidal ideation, feels depressed Onset/Timin -: days(s) Associated Psychiatric Symptoms: depression, suicidal ideation History of same: Yes Quality: getting worse Improves With: none Worsens With: none Associated Symptoms: denies other symptoms <James Simental - Last Filed: 12/02/20 11:51> - General Chief Complaint: Psychiatric Symptoms Stated Complaint: Mental Health Time Seen by Provider: 11/28/20 02:06 - Related Data Previous Rx's Medication Instructions Recorded Acetaminophen Tab [Tylenol] 650 mg PO Q4HR PRN tab 12/02/20 DULoxetine HCL [Cymbalta] 20 mg PO DAILY 30 Days 12/02/20 Nicotine 21Mg/24Hr Patch [Habitrol] 1 patch TRANSDERM DAILY 14 Days 12/02/20 patch QUEtiapine [SEROquel] 100 mg PO HS 30 Days tab 12/02/20 Allergies Allergy/AdvReac Type Severity Reaction Status Date / Time divalproex sodium Allergy Unknown Anaphylaxis Verified 11/28/20 08:07 [From Depakote] venom-honey bee Allergy Anaphylaxis Verified 11/28/20 08:07 [bee venom (honey bee)] Review of Systems ROS Other: All systems not noted in ROS Statement are negative. <Justin Mott - Last Filed: 11/28/20 09:21> ROS Other: All systems not noted in ROS Statement are negative. Constitutional: Denies: fever Respiratory: Denies: cough, dyspnea Cardiovascular: Denies: chest pain, palpitations Gastrointestinal: Denies: abdominal pain, vomiting, diarrhea Genitourinary: Denies: dysuria, hematuria Musculoskeletal: Denies: back pain Skin: Denies: rash Neurological: Denies: headache Psychiatric: Reports: depression, suicidal thoughts. Denies: auditory hallucinations, visual hallucinations, homicidal thoughts <James Simental - Last Filed: 12/02/20 11:51> ROS Statement: Those systems with pertinent positive or pertinent negative responses have been documented in the HPI. 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 [facility]" ANXIETY, DEPRESSION, PTSD, [place]IGHTMARES History of Any Multi-Drug Resistant Organisms: None Reported Past Surgical History: No Surgical Hx Reported Additional Past Surgical History / Comment(s): plastic surgery, ear, face head Past Anesthesia/Blood Transfusion Reactions: No Reported Reaction Past Psychological History: Anxiety, Depression, PTSD Smoking Status: Current every day smoker Past Alcohol Use History: Daily Past Drug Use History: Marijuana - Past Family History Mother Additional Family Medical History / Comment(s): scleroderma, heart disease Father Family Medical History: Myocardial Infarction ([place]) <HolaJames - Last Filed: 12/02/20 11:51> General Exam Limitations: no limitations General appearance: alert, in no apparent distress Head exam: Present: atraumatic, normocephalic Eye exam: Present: normal appearance. Absent: scleral icterus, conjunctival injection Neck exam: Present: normal inspection, full ROM Respiratory exam: Present: normal lung sounds bilaterally. Absent: respiratory distress, wheezes, rales, rhonchi, stridor Cardiovascular Exam: Present: regular rate, normal rhythm, normal heart sounds. Absent: systolic murmur, diastolic murmur, rubs, gallop GI/Abdominal exam: Present: soft. Absent: distended, tenderness, guarding, rebound, rigid, mass Extremities exam: Present: normal inspection, normal capillary refill. Absent: pedal edema, calf tenderness Back exam: Present: normal inspection. Absent: CVA tenderness (R), CVA tenderness (L) Neurological exam: Present: alert Psychiatric exam: Present: depressed, suicidal ideation. Absent: agitated, anxious, flat affect, manic, homicidal ideation Skin exam: Present: warm, dry, intact, normal color. Absent: rash <HolaJames - Last Filed: 12/02/20 11:51> Course Vital Signs 11/28/20 11/28/20 11/28/20 01:57 04:23 14:00 Temperature 97.8 F 98.1 F Pulse Rate 81 69 Respiratory 18 20 18 Rate Blood Pressure 136/77 128/82 O2 Sat by Pulse 96 97 Oximetry 11/28/20 11/29/20 11/29/20 22:00 08:00 09:00 Temperature 98.3 F Pulse Rate 75 Respiratory 17 16 16 Rate Blood Pressure 131/82 O2 Sat by Pulse 97 97 97 Oximetry 11/29/20 11/29/20 11/29/20 10:00 11:00 12:00 Temperature Pulse Rate Respiratory 16 16 16 Rate Blood Pressure O2 Sat by Pulse Oximetry 11/29/20 11/29/20 11/29/20 13:00 14:00 15:00 Temperature Pulse Rate Respiratory 16 16 16 Rate Blood Pressure O2 Sat by Pulse Oximetry 11/29/20 16:00 Temperature 98.3 F Pulse Rate Respiratory 16 Rate Blood Pressure 125/77 O2 Sat by Pulse 99 Oximetry Procedures - Restraint - Face to Face Restraint Occurrence 1 Patient's Immediate Situation: Endangers self safety, Endangers others' safety, Endangers staff safety Patient's Reaction to the Intervention: Uncooperative, Angry, Hostile, Aggressive, Combative Patient's Medical & Behavioral Condition: Awake, Alert, Agitated Need to Continue or Terminate Restraint or Seclusion: Continue Face to Face Eval of Restraint Date: 11/28/20 Face to Face Eval of Restraint Time: 09:23 <Justin Mott - Last Filed: 11/28/20 09:21> Medical Decision Making - Lab Data Result diagrams: 11/30/20 07:02 <James Simental - Last Filed: 12/02/20 11:51> - Lab Data Lab Results 11/28/20 Range/Units 11:15 Coronavirus (PCR) Not Detected (Not Detectd) Disposition <Justin Mott - Last Filed: 11/28/20 09:21> Is patient prescribed a controlled substance at d/c from ED?: No <James Simental - Last Filed: 12/02/20 11:51> Clinical Impression: Mood disorder Disposition: ADMITTED IP TO THIS HOSP Condition: Stable
[2020-11-28] MEDS ORDERED: ACETAMINOPHEN TAB 325 MG TAB PO STA (03:50)
[2020-11-28] MEDS ORDERED: LORazepam 2 MG/ML INJ IM STA (09:26)
[2020-11-28] MEDS ORDERED: HALOPERIDOL LACTATE 5 MG/ML 1 ML VIAL IM STA (09:27)
[2020-11-29] MEDS ORDERED: MAG HYDROX/AL HYDROX/SIMETH 30 ML CUP PO PRN (14:46)
[2020-11-29] MEDS ORDERED: MAGNESIUM HYDROXIDE 2,400 MG/10 ML CUP PO PRN (14:46)
[2020-11-29] MEDS ORDERED: LORazepam 2 MG/ML INJ IM PRN (14:49)
[2020-11-29] MEDS ORDERED: HALOPERIDOL LACTATE 5 MG/ML 1 ML VIAL IM PRN (14:49)
[2020-11-29] MEDS ORDERED: haloperidoL 5 MG TAB PO PRN (14:49)
[2020-11-29] MEDS ORDERED: LORazepam 1 MG TAB PO PRN (14:49)
[2020-11-29] MEDS: NICOTINE 21MG/24HR PATCH TRANSDERM SCH (20:58)
[2020-11-30 07:30] LABS: Basophils % (A) 1 %; Eosinophils # (A) 0.2 k/uL (0-0.7); Eosinophils % (A) 4 %; HCT 41.3 % (39.0-53.0); HGB 13.4 gm/dL (13.0-17.5); Lymphocytes # (A) 1.5 k/uL (1.0-4.8); Lymphocytes % (A) 27 %; MCH 32.6 pg (25.0-35.0); MCHC 32.4 g/dL (31.0-37.0); MCV 100.6 fL (80.0-100.0); Mean Platelet Volume 7.8; Monocytes # (A) 0.4 k/uL (0-1.0); Monocytes % (A) 7 %; Neutrophils # (A) 3.3 k/uL (1.3-7.7); Neutrophils % (A) 59 %; Platelet Count 202 k/uL (150-450); RDW 11.9 % (11.5-15.5); WBC 5.5 k/uL (3.8-10.6)
[2020-11-30] MEDS: NICOTINE 21MG/24HR PATCH TRANSDERM SCH (08:15)
--- NOTE | 2020-11-30 10:34 | P.HP ---
Psychiatric H&P - . H&P Date: 11/30/20 History & Physical: Allergies Allergy/AdvReac Type Severity Reaction Status Date / Time divalproex sodium Allergy Unknown Anaphylaxis Verified 11/28/20 08:07 From Depakote venom-honey bee Allergy Anaphylaxis Verified 11/28/20 08:07 bee venom (honey bee) Vital Signs Temp 97.3 F L 11/30/20 07:27 Pulse 90 11/30/20 07:27 Resp 18 11/30/20 07:27 BP 137/80 11/30/20 07:27 Pulse Ox 99 11/29/20 16:50 Intake & Output 11/29/20 11/30/20 11/30/20 18:59 06:59 18:59 Weight 70.6 kg Laboratory Last Values WBC 5.5 k/uL (3.8-10.6) 11/30/20 07:02 RBC 4.10 m/uL (4.30-5.90) L 11/30/20 07:02 Hgb 13.4 gm/dL (13.0-17.5) 11/30/20 07:02 Hct 41.3 % (39.0-53.0) 11/30/20 07:02 MCV 100.6 fL (80.0-100.0) H 11/30/20 07:02 MCH 32.6 pg (25.0-35.0) 11/30/20 07:02 MCHC 32.4 g/dL (31.0-37.0) 11/30/20 07:02 RDW 11.9 % (11.5-15.5) 11/30/20 07:02 Plt Count 202 k/uL (150-450) 11/30/20 07:02 MPV 7.8 11/30/20 07:02 Neutrophils % 59 % 11/30/20 07:02 Lymphocytes % 27 % 11/30/20 07:02 Monocytes % 7 % 11/30/20 07:02 Eosinophils % 4 % 11/30/20 07:02 Basophils % 1 % 11/30/20 07:02 Neutrophils # 3.3 k/uL (1.3-7.7) 11/30/20 07:02 Lymphocytes # 1.5 k/uL (1.0-4.8) 11/30/20 07:02 Monocytes # 0.4 k/uL (0-1.0) 11/30/20 07:02 Eosinophils # 0.2 k/uL (0-0.7) 11/30/20 07:02 Basophils # 0.0 k/uL (0-0.2) 11/30/20 07:02 TSH 4.100 mIU/L (0.465-4.680) 11/30/20 07:02 Coronavirus (PCR) Not Detected (Not Detectd) 11/28/20 11:15 11/30/20 10:28 IDENTIFYING DATA: Patient is a 55-year-old male who is currently homeless and just got released from [facility]. 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 He has 2 kids. HPI: Patient presented to the hospital for depression and suicidal thoughts. Patient was initially fairly aggressive and agitated and was put in for admission however admitted involuntarily on a petition and certificate. Petition by nurse claims that patient had been "yelling swearing the hospital staff cause harm to his girl cussing at staff states "you soulless bitches are the reason my is going to . I stopped by the river to jump in but too many nosy people there". Patient was seen today by service writer for evaluation. He appeared to be fairly cooperative during interview and spoke about his increase in stress level. He spoke about his having medical problems. He also spoke of a "series of events" and states that he was just released from care home on November 26. He states that he stated he stayed in [facility] for 81 days for felonious assault. He claims that they recently lost their house and they could not keep up with the bills as he was was in care home. He claims his depression has been increasing also anxiety as well. He states that he was near the river and claims that he was having a "emotional breakdown" and states that he had thoughts of jumping in the river. He states that instead he walked to the ER for help. He claims that his sleep has been fair and states his appetite is fair. He denies any history of manic episodes. Patient denies any current suicidal or homicidal ideations intent or plan. At this time patient denies any auditory or visual hallucinations. Patient denies any flight of ideas racing thoughts and increased in goal directed behavior. Patient admits to using alcohol occasionally and marijuana frequently. PAST PSYCHIATRIC HISTORY: Patient states that he has a history of anxiety depression and PTSD. He states that he was on psychiatric meds in the past however cannot remember which ones except for Seroquel and Trileptal. He states that he was previously hospitalized in 2012 [place]. Patient denies any psychiatric outpatient follow-up. He claims that he overdosed once on Valium and alcohol. Past Medical History: Chest Pain / Angina, Pneumonia, Seizure Disorder Additional Past Medical History / Comment(s): Head injury, PT STATES "5 YEARS AGO CHEST PAIN, SEEN A [employer] [employer] IN [facility]" ANXIETY, DEPRESSION, PTSD, NIGHTMARES ALLERGIES: as per EMR CHEMICAL DEPENDENCY HISTORY: as per HPI FAMILY PSYCHIATRIC/SUBSTANCE USE HISTORY: denies SOCIAL HISTORY: Patient was born and raised in [facility]. He states that he completed high school. 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 He states that he has been in care home recently and released on November 26 and spent 81 days for felonious assault. He is currently however is homeless and has 2 kids.. MENTAL STATUS EXAM: General Appearance: Patient appears to be then, stated age is alert, directable, and attempts to cooperate. Patient appears to have poor hygiene and grooming. Behavior: Patient is seated without any agitated behavior. Speech: Patient's speech is fluent and nonpressured. Mood/Affect: Patient reports their mood is depressed, affect is congruent and constricted. Suicidality/Homicidality: Patient denies having any homicidal ideation intent or plan. Denies any suicidal ideations intent or plan Perceptions: Patient denies any visual hallucinations and denies any auditory hallucinations Though content/process: There is no evidence of any delusional thought content and thought process is linear and goal-directed. Memory and concentration: AOX3, grossly intact for the purposes of this session. Can spell "WORLD" backwards Judgment and insight: poor STRENGTHS/WEAKNESSES: strength is that patient is resilient. Weakness is that patient has poor judgment and is impulsive INTELLECT: average IMPRESSIONS: Major depressive disorder, without psychotic features Anxiety disorder unspecified, rule out PTSD Cannabis use disorder PLAN: -Patient is admitted under voluntary status to [facility] for stabilization of psychiatric symptoms and safety. Patient has signed adult voluntary form and medication consent and is placed in patient's chart. -Medications : Will start patient on Zoloft 50 mg daily for mood/anxiety. We'll also start patient on 50 mg of Seroquel daily at bedtime for mood adjunct/insomnia. -Ativan and Haldol PRN for agitation/aggression -Patient was counselled on substance abuse and desired to cut back on use -Patient was informed of the risks, benefits and side effects of the medication and patient verbally consented to taking the medications. Patient signed med consent form and was placed in chart. -Internal Medicine consult to perform medical evaluation and physical. -NRT - nicotine patch -SW on board for discharge planning. Encourage patient to participate in groups to work on coping skills.
[2020-11-30] MEDS: SERTRALINE 50 MG TAB PO SCH (12:14)
[2020-11-30 13:12] LABS: Chol/HDL Ratio 4.91 Ratio; HDL Cholesterol 36.9 mg/dL (40.00-60.00); LDL Cholesterol,Calculated 127.9 mg/dL (0.0-131.0); Triglycerides 80.9 mg/dL (0.00-149.00); VLDL Calculation 16.18 mg/dL (5.00-40.00)
[2020-11-30] MEDS ORDERED: ONDANSETRON 4 MG TAB PO PRN (15:29)
[2020-11-30] MEDS ORDERED: QUEtiapine 50 MG TAB PO SCH (21:00)
[2020-12-01] MEDS: SERTRALINE 50 MG TAB PO SCH (08:02)
[2020-12-01] MEDS: NICOTINE 21MG/24HR PATCH TRANSDERM SCH (08:02)
--- NOTE | 2020-12-01 10:27 | P.PN ---
Progress Note - Text Progress Note Date: 12/01/20 Interval History: Patient was seen wandering the hallways and was directable and agreeable to sherice hoskins with underwriter [employer] in the office. Patient appears to be in brighter spirits today. He states that he is doing better overall. He claims that his mood anxiety and been improving. He states that he took the Zoloft once yesterday and states that "immediately felt sick" and describes having upset stomach and was nauseous and vomiting. He states that he did not take it this morning and would like to be on another medication. He was agreeable to start Cymbalta today. He claims he is going to groups. He states that he has been isolating himself at home and not taking care of his family well and states that he is motivated to do so and find a new place to live. He states that he is more future oriented today. At this time patient denies any suicidal or homical ideations, intent or plan. [place] ent denies any auditory, visual hallucinations and denies any paranoia or delusions. Patient denies any side effects from the medications and has been compliant with meds. Mental Status Exam: General Appearance: Patient appears to be then, stated age is alert, directable, and attempts to cooperate. Patient appears to have improving hygiene and grooming. Behavior: Patient is seated without any agitated behavior. Speech: Patient's speech is fluent and nonpressured. Mood/Affect: Patient reports their mood is improving mildly, affect is congruent Suicidality/Homicidality: Patient denies having any homicidal ideation intent or plan. Denies any suicidal ideations intent or plan Perceptions: Patient denies any visual hallucinations and denies any auditory hallucinations Though content/process: There is no evidence of any delusional thought content and thought process is linear and goal-directed. more future oriented Memory and concentration: AOX3, grossly intact for the purposes of this session. Judgment and insight: improving mildly IMPRESSIONS: Major depressive disorder, without psychotic features Anxiety disorder unspecified, rule out PTSD Cannabis use disorder PLAN: -Patient is admitted under voluntary status to [facility] for stabilization of psychiatric symptoms and safety. Patient has signed adult voluntary form and medication consent and is placed in patient's chart. -Medications : start cymbalta 20mg daily for mood/anxiety. increase 100 mg Seroquel daily at bedtime for mood adjunct/insomnia. -Ativan and Haldol PRN for agitation/aggression -Patient was counselled on substance abuse and desired to cut back on use -NRT - nicotine patch -SW on board for discharge planning. Encourage patient to participate in groups to work on coping skills. likely discharge tomorrow vs. wednesday.
[2020-12-01] MEDS: DULoxetine HCL 20 MG CAPSULE.DR PO SCH (11:06)
[2020-12-01] MEDS: ACETAMINOPHEN TAB 325 MG TAB PO PRN (14:50)
[2020-12-01] MEDS ORDERED: QUEtiapine 100 MG TAB PO SCH (21:00)
[2020-12-02 07:16] VITALS: BP 135/85; PULSE 83; RESP 16; TEMP 97.4
[2020-12-02] MEDS: DULoxetine HCL 20 MG CAPSULE.DR PO SCH (07:48)
[2020-12-02] MEDS: NICOTINE 21MG/24HR PATCH TRANSDERM SCH (07:48)
[2020-12-02] MEDS: ACETAMINOPHEN TAB 325 MG TAB PO PRN (07:48)
--- NOTE | 2020-12-02 09:43 | P.DS ---
Providers Date of admission: 11/29/20 15:09 Expected date of discharge: 12/02/20 Attending physician: Amish Yung MD Consults: 11/29/20 14:46 Consult Physician Routine Consulting Provider: Horacio Martin Consult Reason/Comments: H and P Do you want consulting provider notified?: Yes Primary care physician: Horacio Martin - Discharge Diagnosis(es) (1) Major depressive disorder without psychotic features Current Visit: Yes Status: Acute Priority: High (2) Anxiety disorder Current Visit: Yes Status: Acute Priority: Medium (3) Cannabis use disorder, mild, abuse Current Visit: Yes Status: Acute Priority: Low Hospital Course: Admission HPI: Admission note was completed by keno writer "Patient is a 55-year-old male who is currently homeless and just got released from shelter. 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 He has 2 kids. Patient presented to the hospital for depression and suicidal thoughts. Patient was initially fairly aggressive and agitated and was put in for admission however admitted involuntarily on a petition and certificate. Petition by nurse claims that patient had been "yelling swearing the hospital staff cause harm to his girl cussing at staff states "you soulless bitches are the reason my is going to . I stopped by the river to jump in but too many nosy people there". Patient was seen today by keno writer for evaluation. He appeared to be fairly cooperative during interview and spoke about his increase in stress level. He spoke about his having medical problems. He also spoke of a "series of events" and states that he was just released from [facility] on November 26. He states that he stated he stayed in shelter for 81 days for felonious assault. He claims that they recently lost their house and they could not keep up with the bills as he was was in [facility]. He claims his depression has been increasing also anxiety as well. He states that he was near the [place] and claims that he was having a "emotional breakdown" and states that he had thoughts of jumping in the river. He states that instead he walked to the ER for help. He claims that his sleep has been fair and states his appetite is fair. He denies any history of manic episodes. Patient denies any current suicidal or homicidal ideations intent or plan. At this time patient denies any auditory or visual hallucinations. Patient denies any flight of ideas racing thoughts and increased in goal directed behavior. Patient admits to using alcohol occasionally and marijuana frequently." Hospital course: Upon admission to the unit patient was directable and agreeable to commence treatment and signed adult voluntary form . Patient got along well with other patients on the unit and followed unit protocol. Patient was compliant with the medications and denied any side effects throughout hospital course. Patient was started initially on Zoloft for mood however patient was not able to tolerate it well and was having nausea and vomiting and requested to have his antidepressant changed. Patient was then started on Cymbalta 20 mg daily for mood/anxiety and tolerated this well and claims that it was helping his mood and anxiety. She was previously on Seroquel 100 mg daily at bedtime and wanted to be restarted back on this for a mood adjunct/insomnia. Patient spoke of his stressors and engaged in therapy both group and individual. Patient was also seen by medical team for history and physical exam. Throughout the course of the hospitalization patient gradually improved with regards to mood, anxiety, sleep and became more future oriented with improved insight and judgment. On the day of discharge patient denied any suicidal or homicidal ideations intent or plan denied any auditory or visual hallucinations. Patient endorsed wanting to live for his health and family. The patient denied any access to guns or weapons. Patient denied any paranoia and did not endorse any delusions. Patient does not have a significant history of substance abuse however was counseled on abstaining from all substances including alcohol and marijuana. Patient was also counseled on the medications and need for regular compliance and was encouraged to follow-up with their outpatient appointment for mental health and also for primary care. Patient is currently homeless and will be given penitentiary referral prior to discharge. Mental status exam: General Appearance: Patient appears to be stated age is alert, pleasant, and cooperative. Patient is in no acute distress and has improved hygiene and grooming Behavior: Patient is calmly seated without any agitated behavior. Speech: Patient's speech is fluent and nonpressured. Mood/Affect: Patient reports their mood is "better", affect is congruent and euthymic. Suicidality/Homicidality: Patient denies having any suicidal or homicidal ideation intent or plan. Perceptions: Patient denies any auditory or visual hallucinations. Though content/process: There is no evidence of any delusional thought content and thought process is linear and goal-directed. more future oriented Memory and concentration: AOX3, grossly intact for the purposes of this session. Can spell "WORLD" backwards correctly. Judgment and insight: improved with guarded prognosis Impression: Major depressive disorder, without psychotic features Anxiety disorder unspecified, rule out PTSD Cannabis use disorder Plan: -Continue with discharge today as patient has improved and stabilized psychiatrically and is not currently an imminent threat to himself and/or others. -Continue medications: Cymbalta 20 mg daily for mood/anxiety, Seroquel 100 mg daily at bedtime for mood adjunct/insomnia. -Patient was counseled on the need for medication compliance and appropriate follow-up at mental health and also primary care for medical issues. Patient verbalized understanding and agreed. -Social work to help arrange for patient's discharge today. Patient will be given penitentiary referral as he is currently homeless and does not have another family or friends house to go to. Social work also to arrange for patients fol low up appointments with [facility] for psychiatric care along with follow up with primary care provider. -Patient counseled on abstaining from recreational drugs and marijuana and alcohol. Was informed/educated on the adverse effects on their physical and mental health. Patient verbally agreed and understood. -Patient was instructed to return to the hospital or seek immediate medical care if their psychiatric or medical symptoms do worsen or reoccur. Allergies Allergy/AdvReac Type Severity Reaction Status Date / Time divalproex sodium Allergy Unknown Anaphylaxis Verified 11/28/20 08:07 [From Depakote] venom-honey bee Allergy Anaphylaxis Verified 11/28/20 08:07 [bee venom (honey bee)] Laboratory Results WBC 5.5 k/uL (3.8-10.6) 11/30/20 07:02 RBC 4.10 m/uL (4.30-5.90) L 11/30/20 07:02 Hgb 13.4 gm/dL (13.0-17.5) 11/30/20 07:02 Hct 41.3 % (39.0-53.0) 11/30/20 07:02 MCV 100.6 fL (80.0-100.0) H 11/30/20 07:02 MCH 32.6 pg (25.0-35.0) 11/30/20 07:02 MCHC 32.4 g/dL (31.0-37.0) 11/30/20 07:02 RDW 11.9 % (11.5-15.5) 11/30/20 07:02 Plt Count 202 k/uL (150-450) 11/30/20 07:02 MPV 7.8 11/30/20 07:02 Neutrophils % 59 % 11/30/20 07:02 Lymphocytes % 27 % 11/30/20 07:02 Monocytes % 7 % 11/30/20 07:02 Eosinophils % 4 % 11/30/20 07:02 Basophils % 1 % 11/30/20 07:02 Neutrophils # 3.3 k/uL (1.3-7.7) 11/30/20 07:02 Lymphocytes # 1.5 k/uL (1.0-4.8) 11/30/20 07:02 Monocytes # 0.4 k/uL (0-1.0) 11/30/20 07:02 Eosinophils # 0.2 k/uL (0-0.7) 11/30/20 07:02 Basophils # 0.0 k/uL (0-0.2) 11/30/20 07:[address] Glu mg/dL 94 11/30/20 07:02 Hemoglobin A1c 4.9 % (4.0-6.0) 11/30/20 07:02 Triglycerides 80.90 mg/dL (0.00-149.00) 11/30/20 07:02 Cholesterol 181.00 mg/dL (0.00-200.00) 11/30/20 07:02 LDL Cholesterol, Calc 127.9 mg/dL (0.0-131.0) 11/30/20 07:02 VLDL Cholesterol, Calc 16.18 mg/dL (5.00-40.00) 11/30/20 07:02 HDL Cholesterol 36.90 mg/dL (40.00-60.00) L 11/30/20 07:02 Cholesterol/HDL Ratio 4.91 Ratio 11/30/20 07:02 TSH 4.100 mIU/L (0.465-4.680) 11/30/20 07:02 Coronavirus (PCR) Not Detected (Not Detectd) 11/28/20 11:15 Vital Signs Temp 97.4 F L 12/02/20 07:15 Pulse 83 12/02/20 07:15 Resp 16 12/02/20 07:15 BP 135/85 12/02/20 07:15 Pulse Ox 96 12/01/20 06:21 Patient Condition at Discharge: Stable Plan - Discharge Summary New Discharge Prescriptions: New DULoxetine HCL [Cymbalta] 20 mg PO DAILY 30 Days QUEtiapine [SEROquel] 100 mg PO HS 30 Days tab Acetaminophen Tab [Tylenol] 650 mg PO Q4HR PRN tab PRN Reason: Pain/Discomfort Nicotine 21Mg/24Hr Patch [Habitrol] 1 patch TRANSDERM DAILY 14 Days patch Discharge Medication List Acetaminophen Tab [Tylenol] 650 mg PO Q4HR PRN tab 12/02/20 [Rx] DULoxetine HCL [Cymbalta] 20 mg PO DAILY 30 Days 12/02/20 [Rx] Nicotine 21Mg/24Hr Patch [Habitrol] 1 patch TRANSDERM DAILY 14 Days patch 12/02/20 [Rx] QUEtiapine [SEROquel] 100 mg PO HS 30 Days tab 12/02/20 [Rx] Follow up Appointment(s)/Referral(s): Horacio Martin MD [Primary Care Provider] - 1-2 days Activity/Diet/Wound Care/Special Instructions: Activity and diet as tolerated. Avoid the use of street drugs and alcohol. Take all medications as prescribed. When you are in need of refills on your medications please contact your medical provider and/or outpatient psychiatrist to have this done. Please go to scheduled outpatient appointment for aftercare treatment. If symptoms return or become worse, call the crisis line at and/or go to the nearest emergency room for evaluation. Discharge Disposition: OTHER INSTITUTION NOT DEFINED
--- NOTE | 2020-12-03 12:21 | CONS ---
CONSULTATION CHIEF COMPLAINT: Depression. HISTORY OF PRESENT ILLNESS: This is the first known admission for this 55-year-old white male. He was having difficulty with depression and decided to come in to be hospitalized and evaluated. REVIEW OF SYSTEMS: He denies any headaches, neurologic problems, difficulty with vision or hearing, chest pain, heart disease, hypertension, palpitations, abdominal pain, nausea, vomiting, hematemesis, urinary complaints, diabetes, etc. Past medical history, family history, personal and social histories reveal that he has had prior history of head injury. His medications at present time are none. He is ALLERGIC TO DEPAKOTE. Family history is unremarkable. PHYSICAL EXAMINATION: His blood pressure is 117/75 with a pulse of 85, respirations of 21. He is afebrile. In general, he appeared to be slender, well developed, well nourished, in no acute distress. Skin color is normal. Skin is warm, dry. Lymph nodes are not enlarged. Head, ears, eyes, nose, mouth and throat were normal. Neck veins not distended. Thyroid is not enlarged. Chest is clear. Cardiac exam is normal. Abdomen is soft, nontender. Extremities are normal. Neurologically he is intact. IMPRESSION: He was admitted to the hospital with diagnoses: Depression. RECOMMENDATIONS: None. MMODL / IJN: [id number] /
== END 2020-12-02 12:20 | disposition other institution (70) | DRG 881 ==
LOC: EC 01:53 → 3MHU 11-29 14:38 → UNDOADMIN 11-29 14:38 → 3MHU 11-29 15:09
PROVIDERS: ADMIT Psychiatry & Neurology Psychiatry; ATTEND Psychiatry & Neurology Psychiatry
DX: F32.9 Major depressive disorder, single episode, unspecified (principal); R45.851 Suicidal ideations; F12.10 Cannabis abuse, uncomplicated; Z20.822 Contact with and (suspected) exposure to COVID-19; F17.200 Nicotine dependence, unspecified, uncomplicated; Z78.1 Physical restraint status; F43.10 Post-traumatic stress disorder, unspecified; G40.909 Epilepsy, unspecified, not intractable, without status epilepticus; G47.00 Insomnia, unspecified; Z59.00 Homelessness unspecified; Z79.899 Other long term (current) drug therapy; Z82.49 Family history of ischemic heart disease and other diseases of the circulatory system; F41.8 Other specified anxiety disorders; K30 Functional dyspepsia; R11.2 Nausea with vomiting, unspecified
CPT/HCPCS: 80061; 82075; 83036; 84443; 85025; 87635

== ENCOUNTER 2021-06-16 13:15 | Emergency (ER) | payer OTHER ==
[2021-06-16 13:27] VITALS: RESP 18; TEMP 98.3
[2021-06-16] MEDS ORDERED: KETOROLAC 15 MG/ML 1 ML VIAL IVP STA (13:46)
[2021-06-16] MEDS ORDERED: HYDROmorphone 0.5 MG/0.5 ML SYRINGE IVP STA (13:46)
--- NOTE | 2021-06-16 14:01 | ED ---
General Adult HPI - General Chief complaint: Abdominal Pain Stated complaint: Kidney Stone Time Seen by Provider: 06/16/21 13:30 Source: patient, RN notes reviewed, old records reviewed Mode of arrival: ambulatory Limitations: no limitations - History of Present Illness Initial comments: This is a 56-year-old male who presents emergency Department complaining of testicular pain bilaterally. Patient states he also has noticed that his scrotum swollen. Patient states it started about 3 days ago. Patient states he gotten worse over the last 3 days and there is some pain going up into the inguinal area on the right and left. Patient denies sexual activity in quite a while. Patient states he does not know his any penile drainage. Patient denies any dysuria hematuria. Patient denies any abdominal pain. Patient denies any fever chills. Patient denies any lesions or areas of erythema - Related Data Previous Rx's Medication Instructions Recorded Acetaminophen Tab [Tylenol] 650 mg PO Q4HR PRN tab 12/02/20 DULoxetine HCL [Cymbalta] 20 mg PO DAILY 30 Days 12/02/20 Nicotine 21Mg/24Hr Patch [Habitrol] 1 patch TRANSDERM DAILY 14 Days 12/02/20 patch QUEtiapine [SEROquel] 100 mg PO HS 30 Days tab 12/02/20 Levofloxacin [Levaquin] 750 mg PO DAILY #10 tab 06/16/21 Allergies Allergy/AdvReac Type Severity Reaction Status Date / Time divalproex sodium Allergy Unknown Anaphylaxis Verified 11/28/20 08:07 [From Depakote] venom-honey bee Allergy Anaphylaxis Verified 11/28/20 08:07 [bee venom (honey bee)] Review of Systems ROS Statement: Those systems with pertinent positive or pertinent negative responses have been documented in the HPI. ROS Other: All systems not noted in ROS Statement are negative. 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 [facility]" ANXIETY, DEPRESSION, PTSD, [place]IGHTMAR[place] History of Any Multi-Drug Resistant Organisms: None Reported Past Surgical History: No Surgical Hx Reported Additional Past Surgical History / Comment(s): plastic surgery, ear, face head Past Anesthesia/Blood Transfusion Reactions: No Reported Reaction Past Psychological History: Anxiety, Depression, PTSD Smoking Status: Current every day smoker Past Alcohol Use History: Daily Past Drug Use History: Marijuana - Past Family History Mother Additional Family Medical History / Comment(s): scleroderma, heart disease Father Family Medical History: Myocardial Infarction ([place]) General Exam - General Exam Comments Initial Comments: GENERAL: Patient is well-developed and well-nourished. Patient is nontoxic and well- hydrated and is in moderate distress. ENT: Neck has full range of motion without eliciting any pain. EYES: The sclera were anicteric and conjunctiva were pink and moist. Extraocular movements were intact and pupils were equal round and reactive to light. PULMONARY: Unlabored respirations. Good breath sounds bilaterally. No audible rales rhonchi or wheezing was noted. CARDIOVASCULAR: There is a regular rate and rhythm without any murmurs gallops or rubs. ABDOMEN: Soft and nontender with normal bowel sounds. GENITALIA: Testicles are extremely tender to touch the scrotum does appear edematous there is no obvious hernias but he will not let me do a hernia exam secondary to the pain SKIN: Skin is clear with no lesions or rashes and otherwise unremarkable. NEUROLOGIC: Patient is alert and oriented x3. Cranial nerves II through XII are grossly i ntact. Motor and sensory are also intact. Normal speech, volume and content. Symmetrical smile. MUSCULOSKELETAL: Normal extremities with adequate strength and full range of motion. LYMPHATICS: No significant lymphadenopathy is noted PSYCHIATRIC: Normal psychiatric evaluation. Limitations: no limitations Course Vital Signs 06/16/21 13:25 Temperature 98.3 F Pulse Rate 102 H Respiratory 18 Rate Blood Pressure 129/90 O2 Sat by Pulse 98 Oximetry Medical Decision Making - Medical Decision Making Ultrasound showed varicoceles. Urine showed a urinary tract infection and give the patient a gram of Rocephin and Cipro to cover for STD skin is when I brought it up he seemed to be somewhat concerned about that. She will go home on antibiotics. - Lab Data Result diagrams: 06/16/21 14:20 06/16/21 14:20 Lab Results 06/16/21 06/16/21 06/16/21 Range/Units 14:20 14:20 14:20 WBC 5.8 (3.8-10.6) k/uL RBC 4.20 L (4.30-5.90) m/uL Hgb 14.0 (13.0-17.5) gm/dL Hct 41.9 (39.0-53.0) % MCV 99.8 (80.0-100.0) fL MCH 33.3 (25.0-35.0) pg MCHC 33.4 (31.0-37.0) g/dL RDW 13.3 (11.5-15.5) % Plt Count 220 (150-450) k/uL MPV 8.0 Neutrophils % 72 % Lymphocytes % 19 % Monocytes % 5 % Eosinophils % 2 % Basophils % 0 % Neutrophils # 4.2 (1.3-7.7) k/uL Lymphocytes # 1.1 (1.0-4.8) k/uL Monocytes # 0.3 (0-1.0) k/uL Eosinophils # 0.1 (0-0.7) k/uL Basophils # 0.0 (0-0.2) k/uL Sodium 138 (137-145) mmol/L Potassium 4.7 (3.5-5.1) mmol/L Chloride 103 (98-107) mmol/L Carbon Dioxide 26 (22-30) mmol/L Anion Gap 9 mmol/L BUN 17 (9-20) mg/dL Creatinine 1.07 (0.66-1.25) mg/dL Est GFR (CKD-EPI)AfAm >90 (>60 ml/min/1.73 sqM) Est GFR (CKD-EPI)NonAf 79 (>60 ml/min/1.73 sqM) Glucose 99 (74-99) mg/dL Calcium 9.4 (8.4-10.2) mg/dL Total Bilirubin 0.4 (0.2-1.3) mg/dL AST 31 (17-59) U/L ALT 19 (4-49) U/L Alkaline Phosphatase 80 (38-126) U/L Total Protein 7.6 (6.3-8.2) g/dL Albumin 4.1 (3.5-5.0) g/dL Urine Color Yellow Urine Appearance Turbid (Clear) Urine pH 8.0 (5.0-8.0) Ur Specific [place] 1.019 (1.001-1.035) Urine Protein 2+ H (Negative) Urine Glucose (UA) Negative (Negative) Urine Ketones Negative (Negative) Urine Blood Negative (Negative) Urine Nitrite Negative (Negative) Urine Bilirubin Negative (Negative) Urine Urobilinogen <2.0 (<2.0) mg/dL Ur Leukocyte Esterase Negative (Negative) Urine WBC Clumps Many H (None) /hpf Ur Squamous Epith Cells 1 (0-4) /hpf Urine Bacteria Many H (None) /hpf Urine Mucus Occasional H (None) /hpf Urine Yeast (Budding) Many H (None) /hpf Disposition Clinical Impression: Urinary tract infection Disposition: HOME SELF-CARE Condition: Good Instructions (If sedation given, give patient instructions): Sexually Transmitted Diseases (ED), Urinary Tract Infection in Men (ED) Prescriptions: Levofloxacin [Levaquin] 750 mg PO DAILY #10 tab Is patient prescribed a controlled substance at d/c from ED?: No Referrals: Cornelio Valentine MD [STAFF PHYSICIAN] - 1-2 days Time of Disposition: 18:04
[2021-06-16 14:35] LABS: Basophils % (A) 0 %; Eosinophils # (A) 0.1 k/uL (0-0.7); Eosinophils % (A) 2 %; HCT 41.9 % (39.0-53.0); Lymphocytes # (A) 1.1 k/uL (1.0-4.8); Lymphocytes % (A) 19 %; MCH 33.3 pg (25.0-35.0); MCHC 33.4 g/dL (31.0-37.0); MCV 99.8 fL (80.0-100.0); Monocytes # (A) 0.3 k/uL (0-1.0); Monocytes % (A) 5 %; Neutrophils # (A) 4.2 k/uL (1.3-7.7); Neutrophils % (A) 72 %; Platelet Count 220 k/uL (150-450); RDW 13.3 % (11.5-15.5); WBC 5.8 k/uL (3.8-10.6)
[2021-06-16 14:42] LABS: ALT 19 U/L (4-49); AST 31 U/L (17-59); African American GFR (CKD) >90 (>60 ml/min/1.73 sqM); Albumin 4.1 g/dL (3.5-5.0); Alkaline Phosphatase 80 U/L (38-126); Anion Gap 9 mmol/L; Blood Urea Nitrogen 17 mg/dL (9-20); Calcium 9.4 mg/dL (8.4-10.2); Carbon Dioxide 26 mmol/L (22-30); Chloride 103 mmol/L (98-107); Glucose 99 mg/dL (74-99); Non-African American GFR(CKD) 79 (>60 ml/min/1.73 sqM); Potassium 4.7 mmol/L (3.5-5.1); Sodium 138 mmol/L (137-145); Total Bilirubin 0.4 mg/dL (0.2-1.3); Total Protein 7.6 g/dL (6.3-8.2)
--- NOTE | 2021-06-16 15:45 | US ---
EXAMINATION TYPE: US scrotum with doppler. Grayscale and color Doppler Duplex imaging performed of t he scrotum. DATE OF EXAM: 06/16/2021 COMPARISON: NONE CLINICAL HISTORY: Testicular pain. Pain EXAM MEASUREMENTS: TESTICLES: Right Testicle: 4.0 x 2.1 x 3.2 cm Left Testicle: 4.1 x 2.1 x 2.8 cm EPIDIDYMIS HEAD: Right Epididymis: .8 x .6 cm Left Epididymis: .7 x .7 cm Doppler performed to assess for testicular vascularity; good bilateral color flow and waveforms are s een. There is no evidence of testicular torsion. Presence of hydroceles: No Presence of varicoceles: yes bilateral IMPRESSION: Bilateral varicoceles
[2021-06-16 17:57] LABS: Appearance,Urine Turbid (Clear); Bacteria,Urine Many /hpf; Bilirubin,Urine Negative (Negative); Blood,Urine Negative (Negative); Budding Yeast,Urine Many /hpf; Color,Urine Yellow; Glucose,Urine (UA) Negative (Negative); Ketones,Urine Negative (Negative); Leukocyte Esterase,Urine Negative (Negative); Mucus,Urine Occasional /hpf; Nitrite,Urine Negative (Negative); Protein,Urine 2+ (Negative); Specific Gravity,Urine 1.019 (1.001-1.035); Squamous Epithelial Cell,Urine 1 /hpf (0-4); Urobilinogen,Urine <2.0 mg/dL (<2.0)
[2021-06-16] MEDS ORDERED: cefTRIAXone IN SWFI 1,000 MG/10 ML SYRINGE IVP STA (18:01)
[2021-06-16] MEDS ORDERED: AZITHROMYCIN 500 MG TAB PO STA (18:02)
[2021-06-16 19:19] VITALS: BP 128/82; PULSE 88
[2021-06-17 15:05] LABS: C. trachomatis,PCR Negative (Neg,Equiv); Chlamydia trachomatis Source Urine; N. gonorrhoeae,PCR Negative (Neg,Equiv); Neisseria Source Urine
== END 2021-06-16 19:00 | disposition home or self-care (01) ==
LOC: EC 13:15
DX: N39.0 Urinary tract infection, site not specified (principal); F17.200 Nicotine dependence, unspecified, uncomplicated; Z82.49 Family history of ischemic heart disease and other diseases of the circulatory system; Z88.8 Allergy status to other drugs, medicaments and biological substances; Z91.030 Bee allergy status
CPT/HCPCS: 36415; 80053; 85025; 81001; 87491; 87591; 93975; 76870; 99284; 96374; 96375; J0696; J1885; J1170

== ENCOUNTER 2021-07-05 07:22 | Emergency (ER) | payer OTHER ==
[2021-07-05 07:33] VITALS: TEMP 97.6
[2021-07-05 08:32] LABS: Basophils # (A) 0.1 k/uL (0-0.2); Basophils % (A) 1 %; Eosinophils # (A) 0.1 k/uL (0-0.7); Eosinophils % (A) 2 %; HCT 41.2 % (39.0-53.0); HGB 13.1 gm/dL (13.0-17.5); Lymphocytes # (A) 0.9 k/uL (1.0-4.8); Lymphocytes % (A) 12 %; MCH 31.5 pg (25.0-35.0); MCHC 31.7 g/dL (31.0-37.0); MCV 99.4 fL (80.0-100.0); Mean Platelet Volume 7.5; Monocytes # (A) 0.5 k/uL (0-1.0); Monocytes % (A) 7 %; Neutrophils # (A) 5.6 k/uL (1.3-7.7); Neutrophils % (A) 77 %; Platelet Count 216 k/uL (150-450); RBC 4.15 m/uL (4.30-5.90); RDW 12.6 % (11.5-15.5); WBC 7.2 k/uL (3.8-10.6)
[2021-07-05] MEDS ORDERED: KETOROLAC 15 MG/ML 1 ML VIAL IM STA (08:36)
--- NOTE | 2021-07-05 08:40 | ED ---
Male Urogenital HPI - General Chief complaint: Urogenital Stated complaint: Male Time Seen by Provider: 07/05/21 07:34 Source: patient, RN notes reviewed Mode of arrival: wheelchair Limitations: no limitations - History of Present Illness Initial comments: This is a 56-year-old male who presents to the emergency department for dysuria, and bilateral lower quadrant and groin pain. He was in the emergency department on 06/16/21 and diagnosed with a UTI. He was given Cipro and Rocephin in the emergency department and discharged with a prescription for Levofloxacin. Patient also voices concern about scleroderma. States that his mother, father, and sister all have scleroderma. Notes that he is beginning to experience these symptoms, including tightness of the face and hands, joint pain, as well as difficulty breathing and coughing. He requests testing for scleroderma. Patient denies any fevers, chills, sore throat, visual changes, cough, dyspnea, chest pain, palpitations, abdominal pain, nausea, vomiting, diarrhea, const ipation, headaches, or weakness. MD Complaint: testicle pain, dysuria - Related Data Previous Rx's Medication Instructions Recorded Acetaminophen Tab [Tylenol] 650 mg PO Q4HR PRN tab 12/02/20 DULoxetine HCL [Cymbalta] 20 mg PO DAILY 30 Days 12/02/20 Nicotine 21Mg/24Hr Patch [Habitrol] 1 patch TRANSDERM DAILY 14 Days 12/02/20 patch QUEtiapine [SEROquel] 100 mg PO HS 30 Days tab 12/02/20 Levofloxacin [Levaquin] 750 mg PO DAILY #10 tab 06/16/21 HYDROcodone/APAP 5-325MG [[place] 1 tab PO Q6HR PRN 3 Days #12 tab 07/05/21 5-325] Ondansetron Odt [Zofran Odt] 4 mg PO Q8HR PRN #30 tab 07/05/21 Sulfamethox-Tmp 800-160Mg [Bactrim 1 tab PO Q12HR 28 Days #56 tab 07/05/21 DS 800-160 mg] Allergies Allergy/AdvReac Type Severity Reaction Status Date / Time divalproex sodium Allergy Unknown Anaphylaxis Verified 07/05/21 07:33 [From Depakote] venom-honey bee Allergy Anaphylaxis Verified 07/05/21 07:33 [bee venom (honey bee)] Review of Systems ROS Statement: Those systems with pertinent positive or pertinent negative responses have been documented in the HPI. ROS Other: All systems not noted in ROS Statement are negative. Past Medical History Past Medical History: Chest Pain / Angina, Pneumonia, Seizure Disorder Additional Past Medical History / Comment(s): Head injury, PT STATES "5 YEARS AGO CHEST PAIN, SEEN A PHOTOGRAPHERS' MODEL IN [facility]" ANXIETY, DEPRESSION, PTSD, [place] History of Any Multi-Drug Resistant Organisms: None Reported Past Surgical History: No Surgical Hx Reported Additional Past Surgical History / Comment(s): plastic surgery, ear, face head Past Anesthesia/Blood Transfusion Reactions: No Reported Reaction Past Psychological History: Anxiety, Depression, PTSD Smoking Status: Current every day smoker Past Alcohol Use History: Occasional Past Drug Use History: Marijuana - Past Family History Mother Additional Family Medical History / Comment(s): scleroderma, heart disease Father Family Medical History: Myocardial Infarction ([place]) General Exam Limitations: no limitations General appearance: alert, in distress Head exam: Present: atraumatic, normocephalic, normal inspection Respiratory exam: Present: normal lung sounds bilaterally. Absent: respiratory distress, wheezes, rales, rhonchi, stridor Cardiovascular Exam: Present: regular rate, normal rhythm, normal heart sounds. Absent: systolic murmur, diastolic murmur, rubs, gallop, clicks GI/Abdominal exam: Present: soft, tenderness (Bilateral lower quadrants.), normal bowel sounds. Absent: distended, guarding, rebound, rigid Back exam: Absent: CVA tenderness (R), CVA tenderness (L) Neurological exam: Present: alert, oriented X3, CN II-XII intact Skin exam: Present: warm, dry, intact, normal color. Absent: rash Course Vital Signs 07/05/21 07/05/21 07/05/21 07:28 08:33 09:37 Temperature 97.6 F Pulse Rate 115 H 117 H 121 H Respiratory 18 18 16 Rate Blood Pressure 159/100 114/97 120/102 O2 Sat by Pulse 98 97 98 Oximetry 07/05/21 12:00 Temperature Pulse Rate 107 H Respiratory 16 Rate Blood Pressure 139/107 O2 Sat by Pulse 98 Oximetry Medical Decision Making - Medical Decision Making This is a 56-year-old male who presents to the emergency department for urinary symptoms and shortness of breath. Ultrasound of the kidneys and bladder was unremarkable. Chest x-ray was obtained in light of the shortness of breath, which was unremarkable. Given the patient's excruciating pain, a CT of the abdomen and pelvis was obtained. This was suggestive of prostatitis. Given the patient's symptoms, this is very likely the patient's diagnosis and he'll be treated as such. Additionally he was found to have a UTI a few weeks ago. Patient denies any sexual activity in the last several years. Rx for Bactrim sent to the pharmacy along with Zofran, as antibiotics tend to cause nausea and vomiting for him. 3 day course of [place] prescribed for pain. He is advised to use this sparingly and to start with taking this at night until he knows how if affects him. Instructed him to use anti-inflammatory medication with this. He will also need to follow up with his primary care provider next week for reevaluation of symptoms. Regarding concerns for the scleroderma, I advised that the workup for this will need to be done outpatient, as the lab work will not come back today and it will need to be followed by his PCP. Return precautions reviewed in depth, the patient is instructed to return to the emergency department with any new, worsening, or concerning symptoms. Patient verbalized understanding. This case was discussed in detail with the attending ED physician. Presentation, findings, and treatment plan discussed in detail as well. - Lab Data Result diagrams: 07/05/21 08:14 07/05/21 08:14 Lab Results 07/05/21 07/05/21 07/05/21 Range/Units 08:14 08:14 08:14 WBC 7.2 (3.8-10.6) k/uL RBC 4.15 L (4.30-5.90) m/uL Hgb 13.1 (13.0-17.5) gm/dL Hct 41.2 (39.0-53.0) % MCV 99.4 (80.0-100.0) fL MCH 31.5 (25.0-35.0) pg MCHC 31.7 (31.0-37.0) g/dL RDW 12.6 (11.5-15.5) % Plt Count 216 (150-450) k/uL MPV 7.5 Neutrophils % 77 % Lymphocytes % 12 % Monocytes % 7 % Eosinophils % 2 % Basophils % 1 % Neutrophils # 5.6 (1.3-7.7) k/uL Lymphocytes # 0.9 L (1.0-4.8) k/uL Monocytes # 0.5 (0-1.0) k/uL Eosinophils # 0.1 (0-0.7) k/uL Basophils # 0.1 (0-0.2) k/uL ESR 18 H (0-15) mm/hr Sodium 137 (137-145) mmol/L Potassium 4.3 (3.5-5.1) mmol/L Chloride 105 (98-107) mmol/L Carbon Dioxide 25 (22-30) mmol/L Anion Gap 7 mmol/L BUN 13 (9-20) mg/dL Creatinine 0.89 (0.66-1.25) mg/dL Est GFR (CKD-EPI)AfAm >90 (>60 ml/min/1.73 sqM) Est GFR (CKD-EPI)NonAf >90 (>60 ml/min/1.73 sqM) Glucose 105 H (74-99) mg/dL Calcium 9.1 (8.4-10.2) mg/dL Total Bilirubin 0.4 (0.2-1.3) mg/dL AST 22 (17-59) U/L ALT 17 (4-49) U/L Alkaline Phosphatase 75 (38-126) U/L C-Reactive Protein 0.8 (<1.0) mg/dL Total Protein 7.3 (6.3-8.2) g/dL Albumin 4.2 (3.5-5.0) g/dL Urine Color Yellow Urine Appearance Cloudy (Clear) Urine pH 6.5 (5.0-8.0) Ur Specific [place] 1.019 (1.001-1.035) Urine Protein Trace H (Negative) Urine Glucose (UA) Negative (Negative) Urine Ketones Negative (Negative) Urine Blood Negative (Negative) Urine Nitrite Negative (Negative) Urine Bilirubin Negative (Negative) Urine Urobilinogen <2.0 (<2.0) mg/dL Ur Leukocyte Esterase Negative (Negative) Urine RBC 1 (0-5) /hpf Urine WBC 3 (0-5) /hpf Ur Squamous Epith Cells <1 (0-4) /hpf Amorphous Sediment Rare H (None) /hpf Urine Mucus Few H (None) /hpf - Radiology Data Radiology results: report reviewed, image reviewed Disposition Clinical Impression: Prostatitis Disposition: HOME SELF-CARE Instructions (If sedation given, give patient instructions): Prostatitis (ED) Additional Instructions: Return to the emergency department with any new, worsening, or concerning symptoms. Take the [place] at night until you know how it affects you. Use anti- inflammatory medication such as ibuprofen when taking this. Take the antibiotic as prescribed twice daily for 28 days. Zofran prescribed for any nausea and vomiting that may be associated with the antibiotic. Follow-up with your primary care provider next week. Prescriptions: Sulfamethox-Tmp 800-160Mg [Bactrim DS 800-160 mg] 1 tab PO Q12HR 28 Days #56 tab HYDROcodone/APAP 5-325MG [[place] 5-325] 1 tab PO Q6HR PRN 3 Days #12 tab PRN Reason: Pain Ondansetron Odt [Zofran Odt] 4 mg PO Q8HR PRN #30 tab PRN Reason: Nausea And Vomiting Is patient prescribed a controlled substance at d/c from ED?: Yes When asked, does pt state using other controlled substances?: No If prescribed controlled substance>3 days was MAPS reviewed?: Prescribed <3 Days Referrals: Horacio Martin MD [Primary Care Provider] - 1-2 days
--- NOTE | 2021-07-05 08:43 | XR ---
EXAMINATION TYPE: XR chest 2V DATE OF EXAM: 07/05/2021 COMPARISON: Chest x-ray July 17, 2019 HISTORY: Right-sided chest pain. TECHNIQUE: Frontal and lateral views of the chest are obtained. FINDINGS: There is no suspicious focal air space opacity, pleural effusion, or pneumothorax seen. T he cardiac silhouette size is within normal limits. The osseous structures are intact. IMPRESSION: No acute process. No significant change from prior.
[2021-07-05 08:44] LABS: Amorphous Sediment,Urine Rare /hpf; Appearance,Urine Cloudy (Clear); Bilirubin,Urine Negative (Negative); Blood,Urine Negative (Negative); Color,Urine Yellow; Glucose,Urine (UA) Negative (Negative); Ketones,Urine Negative (Negative); Leukocyte Esterase,Urine Negative (Negative); Mucus,Urine Few /hpf; Nitrite,Urine Negative (Negative); PH, Urine 6.5 (5.0-8.0); Protein,Urine Trace (Negative); RBC,Urine 1 /hpf (0-5); Specific Gravity,Urine 1.019 (1.001-1.035); Squamous Epithelial Cell,Urine <1 /hpf (0-4); Urobilinogen,Urine <2.0 mg/dL (<2.0); WBC,Urine 3 /hpf (0-5)
[2021-07-05 08:54] LABS: ALT 17 U/L (4-49); AST 22 U/L (17-59); African American GFR (CKD) >90 (>60 ml/min/1.73 sqM); Albumin 4.2 g/dL (3.5-5.0); Alkaline Phosphatase 75 U/L (38-126); Anion Gap 7 mmol/L; Blood Urea Nitrogen 13 mg/dL (9-20); C Reactive Protein 0.8 mg/dL (<1.0); Calcium 9.1 mg/dL (8.4-10.2); Carbon Dioxide 25 mmol/L (22-30); Chloride 105 mmol/L (98-107); Glucose 105 mg/dL (74-99); Non-African American GFR(CKD) >90 (>60 ml/min/1.73 sqM); Potassium 4.3 mmol/L (3.5-5.1); Sodium 137 mmol/L (137-145); Total Bilirubin 0.4 mg/dL (0.2-1.3); Total Protein 7.3 g/dL (6.3-8.2)
[2021-07-05] MEDS ORDERED: HYDROmorphone 2 MG TAB PO STA (09:08)
[2021-07-05] MEDS ORDERED: HYDROmorphone 0.5 MG/0.5 ML SYRINGE IVP STA (09:13)
[2021-07-05 09:40] VITALS: RESP 16
[2021-07-05 09:41] LABS: Erythrocyte Sedimentation Rate 18 mm/hr (0-15)
--- NOTE | 2021-07-05 10:38 | US ---
EXAMINATION TYPE: US kidneys/renal and bladder DATE OF EXAM: 07/05/2021 COMPARISON: CT abdomen and pelvis August 07, 2018 CLINICAL HISTORY: Dysuria, bilateral lower quadrant/groin pain. EXAM MEASUREMENTS: Right Kidney: 10.6 x 3.7 x 4.9 cm Left Kidney: 11.8 x 5.1 x 4.7 cm *Size discrepancy may be due to non visualization of lower pole right. Patient in extreme amount of pain. Right Kidney: Inferior pole obscured by bowel gas, no hydronephrosis or masses seen on visualized po rtions. Left Kidney: Partially obscured by bowel gas, no hydronephrosis or masses seen on visualized portion s Bladder: not distended Right kidney shows no concerning mass or hydronephrosis on images saved. Bladder is poorly distended and thus suboptimally evaluated. Left kidney shows no concerning mass or hydronephrosis on images [facility] ed. IMPRESSION: Suboptimal study without hydronephrosis seen bilaterally.
--- NOTE | 2021-07-05 11:42 | CT ---
EXAMINATION TYPE: CT abdomen pelvis w con DATE OF EXAM: 07/05/2021 COMPARISON: CT abdomen and pelvis August 07, 2018 HISTORY: Abd pain CT DLP: 797.6 mGycm, Automated Exposure Control for Dose Reduction was Utilized. CONTRAST: CT scan of the abdomen and pelvis is performed with oral and with IV Contrast, patient injected with 100 mL of Isovue 300. FINDINGS: LUNG BASES: Mild posterior bibasilar linear scarring and/or atelectasis is redemonstrated. LIVER/GB: A few scattered small subcentimeter hypodense lesions throughout the left hepatic lobe are too small to further characterize favored benign thin-walled cysts. PANCREAS: No significant abnormality is seen. SPLEEN: No significant abnormality is seen. ADRENALS: No significant abnormality is seen. KIDNEYS: Symmetric cortical medullary uptake and excretion without hydronephrosis seen bilaterally. T here is 2 mm nonobstructing calculus lower pole right kidney coronal image 50 redemonstrated. BOWEL: Suboptimal evaluation without enteric contrast and patient having abdominal fat. Stomach is po pako distended and thus suboptimally evaluated. No suspicious small or large bowel dilatation. PROSTATE/SEMINAL VESICLES: Prostate gland is heterogeneous in appearance and measures mildly enlarged in size. Slight surrounding fluid is felt present. Scattered bilateral pelvic phleboliths are presen t. LYMPH NODES: No greater than 1cm abdominal or pelvic lymph nodes are appreciated. OSSEOUS STRUCTURES: Nyyd-wh-qmypfxbr axial joint space loss and moderate to severe acetabular spurrin g of both hips. OTHER: No significant additional abnormality is seen. IMPRESSION: Suboptimal study due to patient motion. Mildly prominent heterogeneous prostate with perh aps mild surrounding fluid raises concern for prostatitis, findings may be exaggerated by patient mot ion. Correlate clinically. No bowel obstruction. No acute findings otherwise clearly evident.
[2021-07-05 12:12] VITALS: BP 139/107; PULSE 107
== END 2021-07-05 12:16 | disposition home or self-care (01) ==
LOC: EC 07:22
DX: N41.9 Inflammatory disease of prostate, unspecified (principal); F17.200 Nicotine dependence, unspecified, uncomplicated; Z82.49 Family history of ischemic heart disease and other diseases of the circulatory system; Z88.8 Allergy status to other drugs, medicaments and biological substances; Z91.030 Bee allergy status
CPT/HCPCS: 36415; 80053; 85652; 85025; 86140; 81001; 71046; 76770; 74177; 99284; 96372; 96374; J1885; J1170; Q9967

== ENCOUNTER 2021-08-31 02:02 | Emergency (ER) | payer OTHER ==
--- NOTE | 2021-08-31 02:44 | XR ---
EXAMINATION TYPE: XR chest 2V DATE OF EXAM: 08/31/2021 COMPARISON: 07/05/2021 HISTORY: Cough TECHNIQUE: 2 views FINDINGS: Heart and mediastinum are normal. Lungs are clear. Diaphragm is normal. Bony thorax is inta ct. Pulmonary vascularity is normal. IMPRESSION: Normal chest. No change.
--- NOTE | 2021-08-31 04:17 | ED ---
SOB HPI - General Chief Complaint: Shortness of Breath Stated Complaint: SOB, body aches Time Seen by Provider: 08/31/21 02:41 Source: patient Mode of arrival: ambulatory Limitations: no limitations - Related Data Previous Rx's Medication Instructions Recorded Acetaminophen Tab [Tylenol] 650 mg PO Q4HR PRN tab 12/02/20 DULoxetine HCL [Cymbalta] 20 mg PO DAILY 30 Days 12/02/20 Nicotine 21Mg/24Hr Patch [Habitrol] 1 patch TRANSDERM DAILY 14 Days 12/02/20 patch QUEtiapine [SEROquel] 100 mg PO HS 30 Days tab 12/02/20 Levofloxacin [Levaquin] 750 mg PO DAILY #10 tab 06/16/21 HYDROcodone/APAP 5-325MG [[place] 1 tab PO Q6HR PRN 3 Days #12 tab 07/05/21 5-325] Ondansetron Odt [Zofran Odt] 4 mg PO Q8HR PRN #30 tab 07/05/21 Sulfamethox-Tmp 800-160Mg [Bactrim 1 tab PO Q12HR 28 Days #56 tab 07/05/21 DS 800-160 mg] Albuterol Sulfate [Proair Hfa] 1 - 2 puff INHALATION Q4H PRN #8.5 08/31/21 gm Azithromycin [Zithromax] 0 mg PO DIRECTED #6 tab 08/31/21 predniSONE 50 mg PO DAILY #5 tab 08/31/21 Allergies Allergy/AdvReac Type Severity Reaction Status Date / Time divalproex sodium Allergy Unknown Anaphylaxis Verified 08/31/21 02:20 [From Depakote] venom-honey bee Allergy Anaphylaxis Verified 08/31/21 02:20 [bee venom (honey bee)] Review of Systems ROS Statement: Those systems with pertinent positive or pertinent negative responses have been documented in the HPI. ROS Other: All systems not noted in ROS Statement are negative. Past Medical History Past Medical History: Chest Pain / Angina, Pneumonia, Seizure Disorder Additional Past Medical History / Comment(s): Head injury, PT STATES "5 YEARS AGO CHEST PAIN, SEEN A TRANSFERRER IN [facility]" ANXIETY, DEPRESSION, PTSD, [place] History of Any Multi-Drug Resistant Organisms: None Reported Past Surgical History: No Surgical Hx Reported Additional Past Surgical History / Comment(s): plastic surgery, ear, face head Past Anesthesia/Blood Transfusion Reactions: No Reported Reaction Past Psychological History: Anxiety, Depression, PTSD Smoking Status: Current every day smoker Past Alcohol Use History: Occasional Past Drug Use History: Marijuana - Past Family History Mother Additional Family Medical History / Comment(s): scleroderma, heart disease Father Family Medical History: Myocardial Infarction ([place]) General Exam Limitations: no limitations Course Vital Signs 08/31/21 02:17 Temperature 99.3 F Pulse Rate 95 Respiratory 22 Rate Blood Pressure 125/72 O2 Sat by Pulse 98 Oximetry Medical Decision Making - Lab Data Lab Results 08/31/21 08/31/21 Range/Units 02:42 02:42 Coronavirus (PCR) Not Detected (Not Detectd) Influenza Type A RNA Not Detected (Not Detectd) Influenza Type B (PCR) Not Detected (Not Detectd) Disposition Clinical Impression: Asthma with acute exacerbation Disposition: HOME SELF-CARE Condition: Good Instructions (If sedation given, give patient instructions): Acute Bronchitis (ED), Chronic Bronchitis (ED) Prescriptions: predniSONE 50 mg PO DAILY #5 tab Albuterol Sulfate [Proair Hfa] 1 - 2 puff INHALATION Q4H PRN #8.5 gm PRN Reason: Shortness Of Breath Azithromycin [Zithromax] 0 mg PO DIRECTED #6 tab Is patient prescribed a controlled substance at d/c from ED?: No Referrals: Horacio Martin MD [Primary Care Provider] - 1-2 days
[2021-08-31] MEDS ORDERED: AZITHROMYCIN 500 MG TAB PO STA (06:13)
[2021-08-31 06:31] VITALS: BP 138/87; PULSE 70; RESP 18; TEMP 98.7
== END 2021-08-31 06:31 | disposition home or self-care (01) ==
LOC: EC 02:02
DX: J45.901 Unspecified asthma with (acute) exacerbation (principal); F17.200 Nicotine dependence, unspecified, uncomplicated; Z88.8 Allergy status to other drugs, medicaments and biological substances; Z91.030 Bee allergy status; Z20.822 Contact with and (suspected) exposure to COVID-19
CPT/HCPCS: 71046; 87502; 87635; 99285